=== PATIENT | female | born 2000 | race Caucasian/White ===

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

== ENCOUNTER → 2019-05-20 | Outpatient (CLI) | payer OTHER ==
[2019-05-20 20:54] LABS: Cardiolipin Ab IgG Interp NEGATIVE (NEGATIVE); Cardiolipin Ab IgM Interp NEGATIVE (NEGATIVE); Cardiolipin IgA Antibody <0.5 U/mL; Cardiolipin IgM Antibody 0.4 U/mL
[2019-05-21 11:36] LABS: Anti-Thrombin III Activity 107 % (79-109)
[2019-05-21 14:28] LABS: APTT 35 Sec(s) (<43); Dilute Russell Viper Venom 36 Sec(s) (<44)
[2019-05-21 16:10] LABS: Anti-Thrombin III Antigen 97 % (80 - 120)
== END | disposition home or self-care (01) ==
LOC: LABWHC1 10:52
PROVIDERS: ATTEND Obstetrics & Gynecology Maternal & Fetal Medicine
DX: O26.891 Other specified pregnancy related conditions, first trimester (principal); Z3A.00 Weeks of gestation of pregnancy not specified
CPT/HCPCS: 36415; 85300; 85301; 85613; 85730; 86147

== ENCOUNTER 2019-12-08 12:10 | Outpatient (CLI) | payer OTHER | END 2019-12-08 13:01 | disposition home or self-care (01) | LOC: FBPOP 12:10 | PROVIDERS: ATTEND Obstetrics & Gynecology | DX: O76 Abnormality in fetal heart rate and rhythm complicating labor and delivery (principal); Z3A.00 Weeks of gestation of pregnancy not specified | CPT/HCPCS: 59025 ==

== ENCOUNTER 2019-12-16 06:00 | Inpatient (IN) | payer OTHER ==
[2019-12-16] MEDS ORDERED: OXYTOCIN 10 UNIT/ML 1 ML VIAL IM PRN (06:14)
[2019-12-16] MEDS ORDERED: TERBUTALINE 1 MG/ML VIAL SQ PRN (06:14)
[2019-12-16] MEDS ORDERED: LIDOCAINE 0.5% (PF) 5 MG/ML (50 ML SDV) SQ PRN (06:14)
[2019-12-16] MEDS ORDERED: METHYLERGONOVINE 0.2 MG/ML 1 ML AMP IM PRN (06:14)
[2019-12-16] MEDS ORDERED: CARBOPROST TROMETHAMINE 250 MCG/ML 1 ML AMP IM PRN (06:14)
[2019-12-16] MEDS ORDERED: OXYTOCIN 30 UNITS/500 ML NS 30 UNIT in SALINE 1 500ML.BAG IV SCH (06:15)
[2019-12-16] MEDS: LACTATED RINGERS 1,000 ML IV SCH ×2 (06:29→12:54)
[2019-12-16 06:58] LABS: Basophils % (A) 0 %; Eosinophils # (A) 0.1 k/uL (0-0.7); Eosinophils % (A) 1 %; HCT 39.6 % (34.0-46.0); HGB 13.3 gm/dL (11.4-16.0); Lymphocytes # (A) 2.9 k/uL (1.0-4.8); Lymphocytes % (A) 31 %; MCH 30.3 pg (25.0-35.0); MCHC 33.5 g/dL (31.0-37.0); MCV 90.6 fL (80.0-100.0); Mean Platelet Volume 7.9; Monocytes # (A) 0.4 k/uL (0-1.0); Monocytes % (A) 5 %; Neutrophils # (A) 5.9 k/uL (1.3-7.7); Neutrophils % (A) 62 %; Platelet Count 315 k/uL (150-450); RBC 4.38 m/uL (3.80-5.40); RDW 14.2 % (11.5-15.5); WBC 9.6 k/uL (4.0-11.0)
[2019-12-16 07:08] LABS: INR 0.9 (<1.2); Prothrombin Time 9.6 sec (9.0-12.0)
[2019-12-16] MEDS ORDERED: BUTORPHANOL 1 MG/ML 1 ML VIAL IV PRN ×2 (09:40→09:48)
[2019-12-16] MEDS ORDERED: SODIUM CHLORIDE 0.9% 100 ML BAG ONE (11:42)
[2019-12-16] MEDS ORDERED: fentaNYL (PF) 50 MCG/ML 5 ML AMP ONE (11:42)
[2019-12-16] MEDS ORDERED: ROPIVACAINE 5MG/ML 20ML VIAL ONE (11:42)
[2019-12-16] MEDS ORDERED: ACETAMINOPHEN TAB 325 MG TAB PO PRN (12:47)
[2019-12-16] MEDS ORDERED: HYDROCORTISONE 2.5% RECTAL CREAM 30 GM TUBE RECTAL PRN (12:47)
[2019-12-16] MEDS ORDERED: SIMETHICONE 80 MG CHEWABLE PO PRN (12:47)
[2019-12-16] MEDS ORDERED: BENZOCAINE/MENTHOL SPRAY 1 GM/SPRAY AEROSOL TOPICAL PRN (12:47)
[2019-12-16] MEDS ORDERED: WITCH HAZEL 1 EACH MED..PAD TOPICAL PRN (12:47)
[2019-12-16] MEDS ORDERED: ZOLPIDEM 5 MG TAB PO PRN (12:47)
[2019-12-16] MEDS ORDERED: diphenhydrAMINE 25 MG CAP PO PRN (12:47)
[2019-12-16] MEDS ORDERED: diphenhydrAMINE 50 MG/ML 1 ML VIAL IVP PRN ×2 (12:47)
[2019-12-16] MEDS ORDERED: diphenhydrAMINE 50 MG CAP PO PRN (12:47)
[2019-12-16] MEDS ORDERED: LANOLIN CREAM 5 GM TUBE TOPICAL PRN (12:47)
[2019-12-16] MEDS ORDERED: IBUPROFEN 600 MG TAB PO PRN (12:47)
[2019-12-16] MEDS ORDERED: OXYTOCIN 20 UNITS/1000 ML NS 1,000 ML IV SCH (13:00)
[2019-12-16 21:29] VITALS: TEMP 98.4
--- NOTE | 2019-12-17 07:13 | P.HPOB ---
History of Present Illness H&P Date: 12/16/19 Chief Complaint: Induction of Labor 19-year-old presents at 39 weeks and 3 days for induction of labor. Her cervix is 2 cm dilated, 70% effaced, and -2 station. She is sarah irregularly. heart tones 130 with moderate variability and reactive. Review of Systems All systems: negative Constitutional: Denies chills, Denies fever Eyes: denies blurred vision, denies pain Ears, nose, mouth and throat: Denies headache, Denies sore throat Cardiovascular: Denies chest pain, Denies shortness of breath Respiratory: Denies cough Gastrointestinal: Denies abdominal pain, Denies diarrhea, Denies nausea, Denies vomiting Genitourinary: Denies dysuria, Denies hematuria Musculoskeletal: Denies myalgias Integumentary: Denies pruritus, Denies rash Neurological: Denies numbness, Denies weakness Psychiatric: Denies anxiety, Denies depression Endocrine: Denies fatigue, Denies weight change Past Medical History Past Medical History: Asthma Additional Past Medical History / Comment(s): Obstetric history: First was a vaginal delivery. This is patient's second , she started her care with dc early on. Blood type A+, abs negative, rubella immune, RPR nonreactive, hep is B-, toxoplasmosis negative, normal 1 hour glucose tolerance test, GBS negative. She is a history of a deep vein thrombosis 4 months after her last delivery when she was on control and smoking cigarettes. She's been on heparin injections throughout this . History of Any Multi-Drug Resistant Organisms: None Reported Past Surgical History: No Surgical Hx Reported Past Anesthesia/Blood Transfusion Reactions: No Reported Reaction Past Psychological History: Anxiety Smoking Status: Never smoker Past Alcohol Use History: None Reported Past Drug Use History: None Reported - Past Family History Mother History Unknown: Yes Family Medical History: Cancer Additional Family Medical History / Comment(s): Kidney Cancer Medications and Allergies Home Medications Medication Instructions Recorded Confirmed Type Albuterol Inhaler (Mhu) [Ventolin 1 puff INHALATION DIRECTED 01/20/18 12/16/19 History Hfa Inhaler (Mhu)] Pnv No.95/Ferrous Fum/Folic AC 1 tab PO DAILY 01/20/18 12/16/19 History [ Multivitamin Tablet] Heparin Sodium,Porcine [Heparin 5,000 unit SQ Q12HR 12/08/19 12/16/19 History Sodium] Allergies Allergy/AdvReac Type Severity Reaction Status Date / Time diphenhydramine HCl Allergy Rash/Hives Verified 12/16/19 06:12 [From Benadryl] Sulfa (Sulfonamide Allergy Swelling Verified 12/16/19 06:12 Antibiotics) Exam Osteopathic Statement: *. No significant issues noted on an osteopathic structural exam other than those noted in the History and Physical/Consult. Vital Signs Temp Pulse Resp BP Pulse Ox 12/17/19 00:00 98.4 F 89 16 107/76 12/16/19 20:00 98.4 F 91 16 109/66 99 12/16/19 15:15 98.2 F 66 16 102/64 12/16/19 14:30 16 12/16/19 14:00 67 16 97/60 12/16/19 13:45 61 16 105/69 12/16/19 13:30 79 16 102/63 12/16/19 13:15 88 16 105/61 12/16/19 13:00 98.2 F 92 16 124/65 Intake and Output 12/16/19 12/17/19 12/17/19 22:59 06:59 14:59 Output Total 100 Balance -100 Output: Estimated Blood Loss 100 Other: # Voids 1 1 Heart: Regular rate and rhythm Lungs: Clear to auscultation bilaterally Abdomen: Soft, nontender Extremities: Negative Homans sign Results Result Diagrams: 12/16/19 06:35 Assessment and Plan (1) Normal labor Current Visit: No Status: Resolved Code(s): O80 - ENCOUNTER FOR FULL-TERM UNCOMPLICATED DELIVERY; Z37.9 - OUTCOME OF DELIVERY, UNSPECIFIED SNOMED Code(s): 74876301 (2) History of DVT (deep vein thrombosis) Current Visit: Yes Status: Acute Code(s): Z86.718 - PERSONAL HISTORY OF OTHER VENOUS THROMBOSIS AND EMBOLISM SNOMED Code(s): 024511973 Plan: 1. Amniotomy and Pitocin for labor induction 2. Anticipate normal vaginal delivery
--- NOTE | 2019-12-17 07:15 | P.PROBDLV ---
Vaginal Delivery Note - . Vaginal Delivery Note: 19-year-old presents at 39 weeks and 3 days for induction of labor. Her cervix is 2 cm dilated, 70% effaced, and -2 station. She is sarah irregularly. heart tones 130 with moderate variability and reactive. Pitocin was started. Amniotomy was performed at 7:15 AM and clear fluid noted. She was uncomfortable early on and did have a dose of Stadol. When she was 4 centers dilated she got an epidural. She quickly progressed to complete at 1221. She pushed, delivered a viable female over intact perineum under epidural anesthesia at 12:30. Head delivered OA, anterior shoulder delivered with the guidance of a posterior shoulder and rest of body. Nose and mouth bulb suctioned, cord clamped and cut, placed on mother's abdomen. Apgars 9, 9, weight 6 lbs. 14 oz. Placenta delivered spontaneously, intact with three- vessel cord at 1232. Vagina, cervix, and perineum were inspected. No lacerations noted. Estimated blood loss 200 mL. Mother and baby in stable condition.
--- NOTE | 2019-12-17 07:17 | P.DS ---
Providers Date of admission: 12/16/19 06:05 Expected date of discharge: 12/17/19 Attending physician: Jina Marinelli Primary care physician: Stated None - Discharge Diagnosis(es) (1) History of DVT (deep vein thrombosis) Current Visit: Yes Status: Acute (2) Normal vaginal delivery Current Visit: No Status: Acute Hospital Course: Patient presented for induction of labor. She underwent a normal vaginal delivery. course was uncomplicated. She'll restart her heparin injections day 1 and will continue that for 6 weeks. Discharge instructions were reviewed. She is to follow-up with me in 6 weeks. Plan - Discharge Summary New Discharge Prescriptions: New Benzocaine/Menthol [place] [Dermoplast [place]] 1 gm TOPICAL TID PRN aerosol PRN Reason: Perineal Discomfort Sennosides-Docusate Sodium [Senokot-S] 2 each PO BID@0800,2000 tab Acetaminophen Tab [Tylenol] 650 mg PO Q4HR PRN tab PRN Reason: Mild Pain Or Fever >= 100.5 Continue Heparin Sodium,Porcine [Heparin Sodium] 5,000 unit SQ Q12HR No Action Albuterol Inhaler (Mhu) [Ventolin Hfa Inhaler (Mhu)] 1 puff INHALATION DIRECTED Pnv No.95/Ferrous Fum/Folic AC [ Multivitamin Tablet] 1 tab PO DAILY Discharge Medication List Albuterol Inhaler (Mhu) [Ventolin Hfa Inhaler (Mhu)] 1 puff INHALATION DIRECTED 01/20/18 [History] Pnv No.95/Ferrous Fum/Folic AC [ Multivitamin Tablet] 1 tab PO DAILY 01/20/18 [History] Heparin Sodium,Porcine [Heparin Sodium] 5,000 unit SQ Q12HR 12/08/19 [History] Acetaminophen Tab [Tylenol] 650 mg PO Q4HR PRN tab 12/17/19 [Rx] Benzocaine/Menthol [place] [Dermoplast [place]] 1 gm TOPICAL TID PRN aerosol 12/17/19 [Rx] Sennosides-Docusate Sodium [Senokot-S] 2 each PO BID@0800,2000 tab 12/17/19 [Rx] Follow up Appointment(s)/Referral(s): Jina Marinelli DO [Doctor of Osteopathic Medicine] - 6 Weeks Discharge Disposition: HOME SELF-CARE
[2019-12-17 07:42] LABS: Basophils % (A) 0 %; Eosinophils # (A) 0.1 k/uL (0-0.7); Eosinophils % (A) 1 %; HCT 32.4 % (34.0-46.0); HGB 10.8 gm/dL (11.4-16.0); Lymphocytes # (A) 2.8 k/uL (1.0-4.8); Lymphocytes % (A) 26 %; MCH 30.3 pg (25.0-35.0); MCHC 33.4 g/dL (31.0-37.0); MCV 90.8 fL (80.0-100.0); Mean Platelet Volume 8.2; Monocytes # (A) 0.4 k/uL (0-1.0); Monocytes % (A) 4 %; Neutrophils # (A) 7.4 k/uL (1.3-7.7); Neutrophils % (A) 68 %; Platelet Count 232 k/uL (150-450); RBC 3.57 m/uL (3.80-5.40); RDW 14.5 % (11.5-15.5)
[2019-12-17] MEDS: SENNOSIDES-DOCUSATE SODIUM 1 EACH TAB PO SCH ×2 (08:14→11:32)
[2019-12-17] MEDS ORDERED: PRENATAL VIT-IRON-FOLIC ACID 1 EACH CAP PO SCH (09:00)
[2019-12-17] MEDS ORDERED: HEPARIN SODIUM,PORCINE 5,000 UNIT/ML 1 ML VIAL SQ SCH (09:00)
[2019-12-17 11:30] VITALS: BP 110/70; PULSE 79; RESP 18
== END 2019-12-17 14:00 | disposition home or self-care (01) | DRG 807 ==
LOC: 4FBP 06:05
PROVIDERS: ADMIT Obstetrics & Gynecology; ATTEND Obstetrics & Gynecology
PROC: 00HU33Z Insertion of Infusion Device into Spinal Canal, Percutaneous Approach (ICD-10-PCS; principal; 2019-12-17)
PROC: 10E0XZZ Delivery of Products of Conception, External Approach (ICD-10-PCS; principal; 2019-12-17)
PROC: 3E0R3BZ Introduction of Anesthetic Agent into Spinal Canal, Percutaneous Approach (ICD-10-PCS; principal; 2019-12-17)
DX: O99.52 Diseases of the respiratory system complicating childbirth (principal); Z37.0 Single live birth; O99.344 Other mental disorders complicating childbirth; F41.9 Anxiety disorder, unspecified; J45.909 Unspecified asthma, uncomplicated; Z3A.39 39 weeks gestation of pregnancy; Z80.51 Family history of malignant neoplasm of kidney; Z86.718 Personal history of other venous thrombosis and embolism; Z87.891 Personal history of nicotine dependence; Z88.2 Allergy status to sulfonamides; Z88.8 Allergy status to other drugs, medicaments and biological substances
CPT/HCPCS: 85025; 85610; 85730; 86850; 86900; 86901

== ENCOUNTER 2020-09-20 00:59 | Emergency (ER) | payer OTHER ==
[2020-09-20 01:05] VITALS: TEMP 99.1
[2020-09-20] MEDS ORDERED: CEPHALEXIN 500MG STARTER PACK 4 CAP BTL PO STA (01:24)
--- NOTE | 2020-09-20 01:40 | ED ---
General Adult HPI - General Chief complaint: Extremity Injury, Upper Stated complaint: LT elbow pain Time Seen by Provider: 09/20/20 01:11 Source: patient, RN notes reviewed Mode of arrival: ambulatory Limitations: no limitations - History of Present Illness Initial comments: 20-year-old female presents to the emergency room for a chief complaint of left elbow pain. Patient reports that she fell a few days ago and scraped the inside of her elbow. Patient states that over the past couple days it has become red. Patient is concerned it could be infected. Patient denies any pain with movement of the elbow. States all the pain is on the skin on the outside. Denies any joint pain. Denies any weakness of the arm. Denies fevers or chills.Patient has no other complaints at this time including shortness of breath, chest pain, abdominal pain, nausea or vomiting, headache, or visual changes. - Related Data Home Medications Medication Instructions Recorded Confirmed Albuterol Inhaler (Mhu) [Ventolin 1 puff INHALATION DIRECTED 01/20/18 12/16/19 Hfa Inhaler (Mhu)] Pnv No.95/Ferrous Fum/Folic AC 1 tab PO DAILY 01/20/18 12/16/19 [ Multivitamin Tablet] Heparin Sodium,Porcine [Heparin 5,000 unit SQ Q12HR 12/08/19 12/16/19 Sodium] Previous Rx's Medication Instructions Recorded Acetaminophen Tab [Tylenol] 650 mg PO Q4HR PRN tab 12/17/19 Benzocaine/Menthol Warner 1 gm TOPICAL TID PRN aerosol 12/17/19 [Dermoplast Warner] Sennosides-Docusate Sodium 2 each PO BID@0800,2000 tab 12/17/19 [Senokot-S] Cephalexin [Keflex] 500 mg PO Q6HR 10 Days #40 cap 09/20/20 Allergies Allergy/AdvReac Type Severity Reaction Status Date / Time diphenhydramine HCl Allergy Rash/Hives Verified 09/20/20 01:05 [From Benadryl] Sulfa (Sulfonamide Allergy Swelling Verified 09/20/20 01:05 Antibiotics) Review of Systems ROS Statement: Those systems with pertinent positive or pertinent negative responses have been documented in the HPI. ROS Other: All systems not noted in ROS Statement are negative. Past Medical History Past Medical History: Asthma Additional Past Medical History / Comment(s): Obstetric history: First was a vaginal delivery. This is patient's second , she started her care with me early on. Blood type A+, abs negative, rubella immune, RPR nonreactive, hep is B-, toxoplasmosis negative, normal 1 hour glucose tolerance test, GBS negative. She is a history of a deep vein thrombosis 4 months after her last delivery when she was on control and smoking cigarettes. She's been on heparin injections throughout this . History of Any Multi-Drug Resistant Organisms: None Reported Past Surgical History: No Surgical Hx Reported Past Anesthesia/Blood Transfusion Reactions: No Reported Reaction Past Psychological History: Anxiety Smoking Status: Current every day smoker Past Alcohol Use History: None Reported Past Drug Use History: None Reported - Past Family History Mother History Unknown: Yes Family Medical History: Cancer Additional Family Medical History / Comment(s): Kidney Cancer General Exam Limitations: no limitations General appearance: alert, in no apparent distress Head exam: Present: atraumatic Eye exam: Present: normal appearance, PERRL, EOMI. Absent: scleral icterus, conjunctival injection ENT exam: Present: normal exam, mucous membranes moist Neck exam: Present: normal inspection, full ROM. Absent: tenderness Respiratory exam: Present: normal lung sounds bilaterally. Absent: respiratory distress, wheezes Cardiovascular Exam: Present: regular rate, normal rhythm, normal heart sounds GI/Abdominal exam: Present: soft, normal bowel sounds. Absent: distended, tenderness, guarding, rebound, rigid Extremities exam: Present: full ROM (Full range of motion of the left elbow. Patient has full extension and flexion.), normal capillary refill (cap refill less than 2 seconds, radial pulse 2+ in the left upper extremity.), other (Eryt jah surrounding dorsal aspect of the left elbow. This is demarcated with a marker. Patient does not have any swelling of the bursa) Neurological exam: Present: alert Course Vital Signs 09/20/20 01:02 Temperature 99.1 F Pulse Rate 90 Respiratory 18 Rate Blood Pressure 119/85 O2 Sat by Pulse 100 Oximetry Medical Decision Making - Medical Decision Making X-ray of the left elbow shows subcutaneous edema seen over the extensor surface of the left elbow which could represent contusion cellulitis or bursitis. No subcutaneous gas or foreign body seen. No fracture or dislocation. At this time there is no evidence for joint infection. Patient has full range of motion and is afebrile. She does have evidence for cellulitis and will be treated with Keflex. She will follow up with her doctor. She will return here for any worsening symptoms. I did discuss strict return parameters. Disposition Clinical Impression: Cellulitis Disposition: HOME SELF-CARE Condition: Good Instructions (If sedation given, give patient instructions): Cellulitis (ED) Additional Instructions: Please take antibiotic as directed. You may take 24 hours to really kick in. It may spread a small amount in the next 24 hours and then should certainly improve. If it is spreading rapidly are not improving after 24 hours return to the emergency room. If it is streaking return to the emergency room. If you develop fevers or difficulty straightening or bending the elbow you need to return as well. Otherwise follow-up with her doctor in one to 2 days. Prescriptions: Cephalexin [Keflex] 500 mg PO Q6HR 10 Days #40 cap Is patient prescribed a controlled substance at d/c from ED?: No Referrals: Adarsh Lopez MD [Primary Care Provider] - 1-2 days Time of Disposition: 02:00
--- NOTE | 2020-09-20 01:52 | XR ---
EXAM: XR Left Elbow Complete, 3 or More Views CLINICAL HISTORY: ITS.REASON XR Reason: pain, fall, cellulitis TECHNIQUE: Frontal, lateral and oblique views of the left elbow. COMPARISON: No relevant prior studies available. FINDINGS: Bones/joints: Unremarkable. No acute fracture. No dislocation. Soft tissues: Subcutaneous edema seen of the extensor surface of the left elbow. IMPRESSION: Subcutaneous edema seen of the extensor surface of the left elbow which could represent contusion, cellulitis, and/or bursitis. No subcutaneous gas or foreign body is seen. No fracture or dislocation..
[2020-09-20 02:13] VITALS: BP 106/79; PULSE 85; RESP 17
[2020-09-20] MEDS ORDERED: IBUPROFEN 600 MG STARTER PACK 4 TAB BTL PO STA (02:16)
[2020-09-20] MEDS ORDERED: ACETAMINOPHEN TAB 500 MG TAB PO STA (02:16)
== END 2020-09-20 02:24 | disposition home or self-care (01) ==
LOC: EC 00:59
DX: L03.114 Cellulitis of left upper limb (principal); J45.909 Unspecified asthma, uncomplicated; F17.210 Nicotine dependence, cigarettes, uncomplicated; Z79.899 Other long term (current) drug therapy; Z79.01 Long term (current) use of anticoagulants; Z88.8 Allergy status to other drugs, medicaments and biological substances; Z88.2 Allergy status to sulfonamides; Z86.718 Personal history of other venous thrombosis and embolism
CPT/HCPCS: 99283

== ENCOUNTER 2021-12-28 01:18 | Inpatient (IN) | payer OTHER ==
[2021-12-28] MEDS ORDERED: AMPICILLIN 2,000 MG in SODIUM CHLORIDE 0.9% 100 ML IVPB STA (01:30)
[2021-12-28] MEDS ORDERED: LANOLIN CREAM 5 GM TUBE TOPICAL PRN (06:08)
[2021-12-28] MEDS ORDERED: IBUPROFEN 600 MG TAB PO PRN (06:08)
[2021-12-28] MEDS ORDERED: SIMETHICONE 80 MG CHEWABLE PO PRN (06:08)
[2021-12-28] MEDS ORDERED: HYDROCORTISONE 2.5% RECTAL CREAM 30 GM TUBE RECTAL PRN (06:08)
[2021-12-28] MEDS ORDERED: BENZOCAINE/MENTHOL SPRAY 1 GM/SPRAY AEROSOL TOPICAL PRN (06:08)
[2021-12-28] MEDS ORDERED: ZOLPIDEM 5 MG TAB PO PRN (06:08)
[2021-12-28 07:26] LABS: Basophils % (A) 0 %; Eosinophils # (A) 0.1 k/uL (0-0.7); Eosinophils % (A) 1 %; HCT 33.6 % (34.0-46.0); HGB 10.8 gm/dL (11.4-16.0); Hypochromasia Slight; Lymphocytes # (A) 2.2 k/uL (1.0-4.8); Lymphocytes % (A) 18 %; MCH 26.5 pg (25.0-35.0); MCHC 32.2 g/dL (31.0-37.0); MCV 82.4 fL (80.0-100.0); Mean Platelet Volume 8.7; Monocytes # (A) 0.4 k/uL (0-1.0); Monocytes % (A) 4 %; Neutrophils # (A) 9.4 k/uL (1.3-7.7); Neutrophils % (A) 76 %; Platelet Count 342 k/uL (150-450); RBC 4.08 m/uL (3.80-5.40); RDW 14.2 % (11.5-15.5); WBC 12.3 k/uL (3.8-10.6)
[2021-12-28 09:02] LABS: Amphetamine Screen,Urine Detected (NotDetected); Barbiturate Screen,Urine Not Detected (NotDetected); Benzodiazepines Screen,Urine Not Detected (NotDetected); Cocaine Screen,Urine Not Detected (NotDetected); Methadone Screen, Urine Not Detected (NotDetected); Opiate Screen,Urine Not Detected (NotDetected); Oxycodone Screen, Urine Not Detected (NotDetected); Phencyclidine Screen,Urine Not Detected (NotDetected); Tricyclic Antidepressant,Urine Not Detected (NotDetected); Urn Cannabinoid Scrn Detected (NotDetected)
[2021-12-28] MEDS: ACETAMINOPHEN TAB 325 MG TAB PO PRN (09:02)
[2021-12-28] MEDS: SENNOSIDES-DOCUSATE SODIUM 1 EACH TAB PO SCH ×2 (09:03→18:50)
--- NOTE | 2021-12-28 09:26 | P.HPOB ---
History of Present Illness H&P Date: 12/28/21 Chief Complaint: Contractions This is a 21-year-old female 3 para 2 at 38-0/7 weeks with an estimated date of confinement of 01/11/2022 who presented in active labor with complaints of contractions since approximately 6 PM the night before. She denied any rupture of membranes. On arrival she was found to be 8 cm. She had care with Dr. Marinelli during this . It appears she didn't start her care until 30 weeks. In reviewing the record, it does appear that she had a drug screen positive for THC and amphetamines. She does have a history of a clot in her liver after delivery of her first child. She states that time she was smoking and on oral contraceptives. She was placed on heparin during her second . She states she tried to take heparin this but was unable to and therefore was placed on 2 baby aspirin a day. She was seen by maternal medicine for this condition. labs: Pap smear-within normal limits GC/Chlamydia/Trichomonas-negative Drug screen on 11/15/2021-positive for amphetamines and cannabinoid Group B streptococcus-positive Obstetrical history: . History of 2 vaginal deliveries at term. Review of Systems Constitutional: Denies chills, Denies fever Eyes: denies blurred vision, denies pain Ears, nose, mouth and throat: Denies headache, Denies sore throat Cardiovascular: Denies chest pain, Denies shortness of breath Respiratory: Denies cough Gastrointestinal: Reports abdominal pain Genitourinary: Reports pelvic pain, Reports Musculoskeletal: Reports low back pain Integumentary: Denies pruritus, Denies rash Neurological: Denies numbness, Denies weakness Psychiatric: Reports difficulty concentrating Past Medical History Past Medical History: Asthma, Deep Vein Thrombosis (DVT) (History of deep vein thrombosis in her liver after the delivery of her first child) History of Any Multi-Drug Resistant Organisms: None Reported Past Surgical History: No Surgical Hx Reported Past Anesthesia/Blood Transfusion Reactions: No Reported Reaction Past Psychological History: ADD/ADHD, Anxiety, Depression Smoking Status: Former smoker Past Alcohol Use History: None Reported Past Drug Use History: None Reported Additional Drug Use History / Comment(s): History of THC use with positive drug screen at 30 weeks. Also history of positive drug screen for amphetamines at 30 weeks. - Past Family History Mother History Unknown: Yes Family Medical History: Cancer Additional Family Medical History / Comment(s): Kidney Cancer Medications and Allergies Home Medications Medication Instructions Recorded Confirmed Type Albuterol Inhaler (Mhu) [Ventolin 1 puff INHALATION DIRECTED 01/20/18 12/28/21 History Hfa Inhaler (Mhu)] Pnv No.95/Ferrous Fum/Folic AC 1 tab PO DAILY 01/20/18 12/28/21 History [ Multivitamin Tablet] Cephalexin [Keflex] 500 mg PO Q6HR 10 Days #40 cap 09/20/20 12/28/21 Rx Aspirin [Children's Aspirin] 1 tab PO BID 12/28/21 12/28/21 History Allergies Allergy/AdvReac Type Severity Reaction Status Date / Time diphenhydramine HCl Allergy Rash/Hives Verified 09/20/20 01:05 [From Benadryl] Sulfa (Sulfonamide Allergy Swelling Verified 09/20/20 01:05 Antibiotics) Exam Osteopathic Statement: *. No significant issues noted on an osteopathic structural exam other than those noted in the History and Physical/Consult. Vital Signs Temp Pulse Resp BP 12/28/21 08:00 97.6 F 84 18 110/71 Intake and Output 12/27/21 12/28/21 12/28/21 22:59 06:59 14:59 Other: # Voids 1 Weight 64.41 kg Gen.: Well-developed well-nourished female in moderate to severe distress due to active labor. HEENT: Within normal limits Heart: Regular rate and rhythm Lungs: Clear to auscultation bilaterally Abdomen: Cervix: 8 cm/bulging bag/-2 station. Artificial rupture membranes is carried out with thick meconium noted heart tones: 140s, category 1 Contractions: Every 2-3 minutes Extremities: Negative Homans Results Result Diagrams: 12/28/21 01:12 Abnormal Lab Results - Last 24 Hours (Table) 12/28/21 12/28/21 Range/Units 01:12 05:56 WBC 12.3 H (3.8-10.6) k/uL Hgb 10.8 L (11.4-16.0) gm/dL Hct 33.6 L (34.0-46.0) % Neutrophils # 9.4 H (1.3-7.7) k/uL Ur Amphetamines Screen Detected H (NotDetected) U Methamphetamines Scrn Detected H (NotDetected) U Marijuana (THC) Screen Detected H (NotDetected) Assessment and Plan (1) 38 weeks gestation of Current Visit: Yes Status: Acute Code(s): Z3A.38 - 38 WEEKS GESTATION OF SNOMED Code(s): 96464243 (2) Positive urine drug screen Current Visit: Yes Status: Acute Code(s): R82.5 - ELEVATED URINE LEVELS OF DRUG/MEDS/BIOL SUBST SNOMED Code(s): 423365190 (3) History of DVT (deep vein thrombosis) Current Visit: No Status: Acute Code(s): Z86.718 - PERSONAL HISTORY OF OTHER VENOUS THROMBOSIS AND EMBOLISM SNOMED Code(s): 999260873 (4) Group B Streptococcus carrier, +RV culture, currently Current Visit: Yes Status: Acute Code(s): O99.820 - STREPTOCOCCUS B CARRIER STATE COMPLICATING SNOMED Code(s): 5631700624987 Plan: Admission for active labor. Expectant management. Will consult social science analyst due to positive drug screen during . Antibiotic prophylaxis for group B streptococcus.
--- NOTE | 2021-12-28 09:28 | P.PROBDLV ---
Vaginal Delivery Note - . Vaginal Delivery Note: The patient arrived in active labor at 8 cm. She was very uncontrolled and thrashing about in the bed. When I did check her, I performed artificial rupture membranes and thick meconium was noted. Anesthesia was notified. She fairly quickly reached complete dilation. She was instructed to push. Once she was able to control herself enough to push, the 's head came to the perineum fairly quickly and then delivered across the perineum followed by the anterior shoulder and the remainder the infant. Nose and mouth were bulb suctioned. Cord was clamped and cut and was taken to warmer for evaluation by nursing staff and HIGHWAY PA[employer]. A viable female infant is noted with scores of 8 at 1 minute and 9 at 5 minutes and infant weight of 6 lbs. 7 oz. Placenta delivered shortly thereafter, intact, with a three-vessel cord. Inspection of the perineum revealed no perineal lacerations. Estimated blood loss is approximately 100 mL's. Mother is in stable condition and infant is taken to level I nursery for further evaluation.
[2021-12-28 19:06] LABS: Hepatitis B Surface Antigen Nonreactive (Nonreactive)
--- NOTE | 2021-12-29 06:35 | P.PN ---
Progress Note - Text Progress Note Date: 12/29/21 day #1. Patient is resting without complaints and wishes to go home. Patient's baby is going to be in the nursery for at least 5 days for JACQUELINE scoring. Vital signs are stable she's afebrile. Uterus is firm and nontender she's having normal lochia. Patient did have positive toxicology screen for marijuana and methamphetamines. Plan today is to continue routine care and discharge home later this morning.
--- NOTE | 2021-12-29 06:39 | P.DS ---
Providers Date of admission: 12/28/21 01:18 Expected date of discharge: 12/29/21 Attending physician: Jina Mairnelli Primary care physician: Stated None Hospital Course: Please see dictated admission history and physical and delivery note per Dr. Taylor on this patient's admission. In brief summary this is a 21-year-old 3 para 2 female 38 weeks gestation admitted to labor and delivery in active labor. Patient quickly goes on have a vaginal delivery viable female . Please see dictated delivery note. Of note patient positive toxicology screen for methamphetamines and marijuana on admission. patient does well was felt to be stable for discharge home follow up with Dr. Marinelli and 6 weeks. Patient Condition at Discharge: Good Plan - Discharge Summary New Discharge Prescriptions: New Ibuprofen [Motrin] 600 mg PO Q6HR PRN #30 tab PRN Reason: Mild Pain (Scale 1 To 3) No Action Albuterol Inhaler (Mhu) [Ventolin Hfa Inhaler (Mhu)] 1 puff INHALATION DIRECTED Pnv No.95/Ferrous Fum/Folic AC [ Multivitamin Tablet] 1 tab PO DAILY Cephalexin [Keflex] 500 mg PO Q6HR 10 Days #40 cap Aspirin [Children's Aspirin] 1 tab PO BID Discharge Medication List Albuterol Inhaler (Mhu) [Ventolin Hfa Inhaler (Mhu)] 1 puff INHALATION DIRECTED 01/20/18 [History] Pnv No.95/Ferrous Fum/Folic AC [ Multivitamin Tablet] 1 tab PO DAILY 01/20/18 [History] Cephalexin [Keflex] 500 mg PO Q6HR 10 Days #40 cap 09/20/20 [Rx] Aspirin [Children's Aspirin] 1 tab PO BID 12/28/21 [History] Ibuprofen [Motrin] 600 mg PO Q6HR PRN #30 tab 12/29/21 [Rx] Follow up Appointment(s)/Referral(s): Jina Marinelli DO [Doctor of Osteopathic Medicine] - 02/08/22 3:45 pm Patient Instructions/Handouts: Vaginal Delivery (DC), Methamphetamine Abuse (DC) Activity/Diet/Wound Care/Special Instructions: No intercourse or anything per vagina for 6 weeks. Please call if any fever, chills, excessive vaginal bleeding, and/or abdominal pain. Discharge Disposition: HOME SELF-CARE
[2021-12-29 08:04] VITALS: BP 101/77; PULSE 86; RESP 18; TEMP 98.4
[2021-12-29 08:04] LABS: Basophils % (A) 0 %; Eosinophils # (A) 0.1 k/uL (0-0.7); Eosinophils % (A) 1 %; HGB 10.9 gm/dL (11.4-16.0); Hypochromasia Slight; Lymphocytes # (A) 2.8 k/uL (1.0-4.8); Lymphocytes % (A) 27 %; MCH 27.1 pg (25.0-35.0); MCV 84.8 fL (80.0-100.0); Mean Platelet Volume 8.3; Monocytes # (A) 0.4 k/uL (0-1.0); Monocytes % (A) 4 %; Neutrophils # (A) 6.7 k/uL (1.3-7.7); Neutrophils % (A) 65 %; Platelet Count 301 k/uL (150-450); RBC 4.01 m/uL (3.80-5.40); RDW 14.5 % (11.5-15.5); WBC 10.3 k/uL (3.8-10.6)
[2021-12-29] MEDS: SENNOSIDES-DOCUSATE SODIUM 1 EACH TAB PO SCH (08:06)
[2021-12-29] MEDS: ACETAMINOPHEN TAB 325 MG TAB PO PRN (08:46)
== END 2021-12-29 12:54 | disposition home or self-care (01) | DRG 807 ==
LOC: 4FBP 01:18
PROVIDERS: ADMIT Obstetrics & Gynecology; ATTEND Obstetrics & Gynecology
PROC: 10907ZC Drainage of Amniotic Fluid, Therapeutic from Products of Conception, Via Natural or Artificial Opening (ICD-10-PCS; principal; 2021-12-28)
PROC: 10E0XZZ Delivery of Products of Conception, External Approach (ICD-10-PCS; principal; 2021-12-28)
DX: O99.824 Streptococcus B carrier state complicating childbirth (principal); Z37.0 Single live birth; Z3A.38 38 weeks gestation of pregnancy; O77.0 Labor and delivery complicated by meconium in amniotic fluid; O99.52 Diseases of the respiratory system complicating childbirth; R78.89 Finding of other specified substances, not normally found in blood; J45.909 Unspecified asthma, uncomplicated; O99.344 Other mental disorders complicating childbirth; F32.A Depression, unspecified; F41.9 Anxiety disorder, unspecified; F90.9 Attention-deficit hyperactivity disorder, unspecified type; Z87.891 Personal history of nicotine dependence; Z86.718 Personal history of other venous thrombosis and embolism; Z79.82 Long term (current) use of aspirin; Z80.51 Family history of malignant neoplasm of kidney
CPT/HCPCS: 80306; 85025; 86762; 86780; 86850; 86900; 86901; 87340; 88307

== ENCOUNTER 2022-05-09 14:45 | Observation (INO) | payer OTHER ==
[2022-05-09] MEDS ORDERED: SODIUM CHLORIDE 0.9% 1,000 ML IV STA (15:38)
[2022-05-09] MEDS ORDERED: MORPHINE SULFATE 4 MG/ML SYRINGE IV STA (15:38)
[2022-05-09 15:49] LABS: Basophils # (A) 0.1 k/uL (0-0.2); Basophils % (A) 0 %; Eosinophils % (A) 0 %; HCT 44.1 % (34.0-46.0); HGB 14.2 gm/dL (11.4-16.0); Lymphocytes # (A) 1.6 k/uL (1.0-4.8); Lymphocytes % (A) 13 %; MCH 29.4 pg (25.0-35.0); MCHC 32.1 g/dL (31.0-37.0); MCV 91.6 fL (80.0-100.0); Mean Platelet Volume 7.9; Monocytes # (A) 0.3 k/uL (0-1.0); Monocytes % (A) 2 %; Neutrophils # (A) 10.9 k/uL (1.3-7.7); Neutrophils % (A) 84 %; Platelet Count 452 k/uL (150-450); RBC 4.82 m/uL (3.80-5.40); RDW 13.5 % (11.5-15.5); WBC 12.9 k/uL (3.8-10.6)
[2022-05-09 16:00] LABS: ALT 21 U/L (4-34); AST 35 U/L (14-36); African American GFR (CKD) >90 (>60 ml/min/1.73 sqM); Albumin 4.2 g/dL (3.5-5.0); Alkaline Phosphatase 91 U/L (38-126); Anion Gap 13 mmol/L; Blood Urea Nitrogen 6 mg/dL (7-17); Calcium 9.4 mg/dL (8.4-10.2); Carbon Dioxide 21 mmol/L (22-30); Chloride 105 mmol/L (98-107); Glucose 99 mg/dL (74-99); Lipase 57 U/L (23-300); Non-African American GFR(CKD) >90 (>60 ml/min/1.73 sqM); Potassium 4.3 mmol/L (3.5-5.1); Sodium 139 mmol/L (137-145); Total Bilirubin 0.5 mg/dL (0.2-1.3); Total Protein 6.8 g/dL (6.3-8.2)
--- NOTE | 2022-05-09 16:02 | ED ---
Abdominal Pain HPI - General Chief Complaint: Abdominal Pain Stated Complaint: Abd pain Time Seen by Provider: 05/09/22 15:25 Source: EMS Mode of arrival: EMS Limitations: no limitations - History of Present Illness Initial Comments: 21-year-old female with past medical history of portal venous thrombosis not currently on any anticoagulation who presents to the emergency department with right upper quadrant abdominal pain. She was seen at [facility] yesterday for similar complaints. She was diagnosed with gallstones. She had laboratory studies, CT of the abdomen and an ultrasound performed. She was given morphine for pain and discharge instructions including follow-up with Dr. Tobias who is a surgeon for [place]. She was discharged home on Naprosyn and Zofran. Her pain was controlled when she went home. This morning she attempted to eat some crackers. She began developing worsening right upper quadrant pain, nausea and began vomiting. She has been unable to hold down any food or drink in the past 24 hours. She denies fevers. No concern for . She denies diarrhea. Admits constipation. Admits to dysuria. No other alleviating, precipitating or modifying factors - Related Data Home Medications Medication Instructions Recorded Confirmed Pnv No.95/Ferrous Fum/Folic AC 1 tab PO DAILY 01/20/18 05/09/22 [ Multivitamin Tablet] Naproxen [Naprosyn] 500 mg PO BID PRN 05/09/22 05/09/22 Ondansetron Odt [Zofran Odt] 4 mg PO BID PRN 05/09/22 05/09/22 busPIRone HCL [Buspirone HCl] 10 mg PO DAILY 05/09/22 05/09/22 Previous Rx's Medication Instructions Recorded traMADol HCl [Ultram] 50 mg PO Q6H PRN #6 tab 05/11/22 Allergies Allergy/AdvReac Type Severity Reaction Status Date / Time diphenhydramine HCl Allergy Rash/Hives Verified 05/10/22 15:57 [From Benadryl] Sulfa (Sulfonamide Allergy Swelling Verified 05/10/22 15:57 Antibiotics) Review of Systems ROS Statement: Those systems with pertinent positive or pertinent negative responses have been documented in the HPI. ROS Other: All systems not noted in ROS Statement are negative. Past Medical History Past Medical History: Asthma, Deep Vein Thrombosis (DVT) Additional Past Medical History / Comment(s): Obstetric history: First was a vaginal delivery. This is patient's second , she started her care with me early on. Blood type A+, abs negative, rubella immune, RPR nonreactive, hep is B-, toxoplasmosis negative, normal 1 hour glucose tolerance test, GBS postive. She is a history of a deep vein thrombosis 4 months after her last delivery when she was on control and smoking cigarettes. pt. states she has been taking asprin this History of Any Multi-Drug Resistant Organisms: None Reported Past Surgical History: No Surgical Hx Reported Past Anesthesia/Blood Transfusion Reactions: No Reported Reaction Past Psychological History: ADD/ADHD, Anxiety, Depression Smoking Status: Former smoker Past Alcohol Use History: None Reported Past Drug Use History: Marijuana - Past Family History Mother History Unknown: Yes Family Medical History: Cancer Additional Family Medical History / Comment(s): Kidney Cancer General Exam Limitations: no limitations General appearance: alert, in no apparent distress Head exam: Present: atraumatic, normocephalic, normal inspection Eye exam: Present: normal appearance, PERRL, EOMI. Absent: scleral icterus, conjunctival injection, periorbital swelling ENT exam: Present: normal exam, mucous membranes moist Neck exam: Present: normal inspection. Absent: tenderness, meningismus, lymphadenopathy Respiratory exam: Present: normal lung sounds bilaterally. Absent: respiratory distress, wheezes, rales, rhonchi, stridor Cardiovascular Exam: Present: regular rate, normal rhythm, normal heart sounds. Absent: systolic murmur, diastolic murmur, rubs, gallop, clicks GI/Abdominal exam: Present: soft, tenderness (RUQ), normal bowel sounds. Absent: distended, guarding, rebound, rigid, pulsatile mass Extremities exam: Present: normal inspection, full ROM, normal capillary refill. Absent: tenderness, pedal edema, joint swelling, calf tenderness Back exam: Present: normal inspection Neurological exam: Present: alert, oriented X3, CN II-XII intact Psychiatric exam: Present: normal affect, normal mood Skin exam: Present: warm, dry, intact, normal color. Absent: rash Course Vital Signs 05/09/22 05/09/22 05/09/22 14:49 18:19 19:00 Temperature 98.3 F 98.4 F Pulse Rate 55 L 80 Pulse Rate [ 79 Pulse Oximetery ] Respiratory 18 18 17 Rate Blood Pressure 123/83 111/82 Blood Pressure 112/73 [Right Arm] O2 Sat by Pulse 98 97 96 Oximetry Medical Decision Making - Medical Decision Making upon arrival patient is placed into room 21. A thorough history and physical exam was performed. Patient received 4 g of Zofran from EMS. She also received 15 mg of Toradol. I obtained the records from [facility]. Ultrasound demonstrates multiple stones with shadowing. Contracted gallbladder with wall thickening. Hyperechoic lesion within the left hepatic lobe measuring 1.7. No pericholecystic fluid or inflammation. CT of the chest was performed which demonstrates no evidence of PE. Portal vein is patent. I repeated laboratory studies. Patient was given 4 mg of morphine. Spoke with Dr. Rodriguez in regards to the patient's uncontrolled pain and nausea. Patient will be admitted with IV antibiotics, pain control and antiemetics. Patient was agreeable to the treatment plan and was admitted in stable condition - Lab Data Result diagrams: 05/10/22 06:51 05/10/22 09:44 Lab Results 05/09/22 05/09/22 05/09/22 Range/Units 15:40 15:40 15:55 WBC 12.9 H (3.8-10.6) k/uL RBC 4.82 (3.80-5.40) m/uL Hgb 14.2 (11.4-16.0) gm/dL Hct 44.1 (34.0-46.0) % MCV 91.6 (80.0-100.0) fL MCH 29.4 (25.0-35.0) pg MCHC 32.1 (31.0-37.0) g/dL RDW 13.5 (11.5-15.5) % Plt Count 452 H (150-450) k/uL MPV 7.9 Neutrophils % 84 % Lymphocytes % 13 % Monocytes % 2 % Eosinophils % 0 % Basophils % 0 % Neutrophils # 10.9 H (1.3-7.7) k/uL Lymphocytes # 1.6 (1.0-4.8) k/uL Monocytes # 0.3 (0-1.0) k/uL Eosinophils # 0.0 (0-0.7) k/uL Basophils # 0.1 (0-0.2) k/uL Sodium 139 (137-145) mmol/L Potassium 4.3 (3.5-5.1) mmol/L Chloride 105 (98-107) mmol/L Carbon Dioxide 21 L (22-30) mmol/L Anion Gap 13 mmol/L BUN 6 L (7-17) mg/dL Creatinine 0.68 (0.52-1.04) mg/dL Est GFR (CKD-EPI)AfAm >90 (>60 ml/min/1.73 sqM) Est GFR (CKD-EPI)NonAf >90 (>60 ml/min/1.73 sqM) Glucose 99 (74-99) mg/dL Calcium 9.4 (8.4-10.2) mg/dL Total Bilirubin 0.5 (0.2-1.3) mg/dL AST 35 (14-36) U/L ALT 21 (4-34) U/L Alkaline Phosphatase 91 (38-126) U/L Total Protein 6.8 (6.3-8.2) g/dL Albumin 4.2 (3.5-5.0) g/dL Lipase 57 (23-300) U/L Urine Color Yellow Urine Appearance Cloudy H (Clear) Urine pH 7.5 (5.0-8.0) Ur Specific [place] 1.028 (1.001-1.035) Urine Protein 1+ H (Negative) Urine Glucose (UA) Negative (Negative) Urine Ketones 4+ H (Negative) Urine Blood Negative (Negative) Urine Nitrite Negative (Negative) Urine Bilirubin Negative (Negative) Urine Urobilinogen 2.0 (<2.0) mg/dL Ur Leukocyte Esterase Large H (Negative) Urine RBC 2 (0-5) /hpf Urine WBC 181 H (0-5) /hpf Ur Squamous Epith Cells 15 H (0-4) /hpf Urine Bacteria Rare H (None) /hpf Hyaline Casts 2 (0-2) /lpf Urine Mucus Many H (None) /hpf Urine HCG, Qual (Not Detectd) 05/09/22 Range/Units 16:08 WBC (3.8-10.6) k/uL RBC (3.80-5.40) m/uL Hgb (11.4-16.0) gm/dL Hct (34.0-46.0) % MCV (80.0-100.0) fL MCH (25.0-35.0) pg MCHC (31.0-37.0) g/dL RDW (11.5-15.5) % Plt Count (150-450) k/uL MPV Neutrophils % % Lymphocytes % % Monocytes % % Eosinophils % % Basophils % % Neutrophils # (1.3-7.7) k/uL Lymphocytes # (1.0-4.8) k/uL Monocytes # (0-1.0) k/uL Eosinophils # (0-0.7) k/uL Basophils # (0-0.2) k/uL Sodium (137-145) mmol/L Potassium (3.5-5.1) mmol/L Chloride (98-107) mmol/L Carbon Dioxide (22-30) mmol/L Anion Gap mmol/L BUN (7-17) mg/dL Creatinine (0.52-1.04) mg/dL Est GFR (CKD-EPI)AfAm (>60 ml/min/1.73 sqM) Est GFR (CKD-EPI)NonAf (>60 ml/min/1.73 sqM) Glucose (74-99) mg/dL Calcium (8.4-10.2) mg/dL Total Bilirubin (0.2-1.3) mg/dL AST (14-36) U/L ALT (4-34) U/L Alkaline Phosphatase (38-126) U/L Total Protein (6.3-8.2) g/dL Albumin (3.5-5.0) g/dL Lipase (23-300) U/L Urine Color Urine Appearance (Clear) Urine pH (5.0-8.0) Ur Specific [place] (1.001-1.035) Urine Protein (Negative) Urine Glucose (UA) (Negative) Urine Ketones (Negative) Urine Blood (Negative) Urine Nitrite (Negative) Urine Bilirubin (Negative) Urine Urobilinogen (<2.0) mg/dL Ur Leukocyte Esterase (Negative) Urine RBC (0-5) /hpf Urine WBC (0-5) /hpf Ur Squamous Epith Cells (0-4) /hpf Urine Bacteria (None) /hpf Hyaline Casts (0-2) /lpf Urine Mucus (None) /hpf Urine HCG, Qual Not Detected (Not Detectd) - EKG Data EKG Comments: EKG demonstrates sinus bradycardia with a rate of 51. VT interval 128. QRS 82. QTC 432. No acute ST segment elevations or depressions Disposition Clinical Impression: Cholelithiasis, RUQ abdominal pain, Nausea and vomiting Disposition: ADMITTED IP TO THIS HOSP Condition: Stable Is patient prescribed a controlled substance at d/c from ED?: No Time of Disposition: 17:49 Decision to Admit Reason: Admit from EC Decision Date: 05/09/22 Decision Time: 17:49
[2022-05-09 16:07] LABS: Appearance,Urine Cloudy (Clear); Bacteria,Urine Rare /hpf; Bilirubin,Urine Negative (Negative); Blood,Urine Negative (Negative); Color,Urine Yellow; Glucose,Urine (UA) Negative (Negative); Hyaline Casts,Urine 2 /lpf (0-2); Ketones,Urine 4+ (Negative); Leukocyte Esterase,Urine Large (Negative); Mucus,Urine Many /hpf; Nitrite,Urine Negative (Negative); PH, Urine 7.5 (5.0-8.0); Protein,Urine 1+ (Negative); RBC,Urine 2 /hpf (0-5); Specific Gravity,Urine 1.028 (1.001-1.035); Squamous Epithelial Cell,Urine 15 /hpf (0-4); WBC,Urine 181 /hpf (0-5)
[2022-05-09] MEDS ORDERED: SODIUM CHLORIDE 0.9% 1,000 ML IV ONE (17:49)
[2022-05-09] MEDS ORDERED: NALOXONE 0.4 MG/ML 1 ML VIAL IV PRN (17:51)
[2022-05-09] MEDS: PANTOPRAZOLE 40 MG/10 ML VIAL IV SCH (18:28)
[2022-05-09] MEDS: PIPERACILLIN-TAZOBACTAM 3.375 GM in SODIUM CHLORIDE 0.9% 100 ML IVPB SCH (18:34)
[2022-05-09] MEDS: MORPHINE SULFATE 4 MG/ML SYRINGE IV PRN (20:28)
[2022-05-09] MEDS: SODIUM CHLORIDE 0.9% 1,000 ML IV SCH (21:35)
[2022-05-10] MEDS: MORPHINE SULFATE 4 MG/ML SYRINGE IV PRN ×5 (01:59→21:32)
[2022-05-10] MEDS: PIPERACILLIN-TAZOBACTAM 3.375 GM in SODIUM CHLORIDE 0.9% 100 ML IVPB SCH ×3 (02:00→19:27)
[2022-05-10] MEDS: SODIUM CHLORIDE 0.9% 1,000 ML IV SCH ×3 (02:04→19:26)
[2022-05-10] MEDS: ONDANSETRON 4 MG/2 ML VIAL IVP PRN ×3 (05:57→23:39)
[2022-05-10] MEDS: PANTOPRAZOLE 40 MG/10 ML VIAL IV SCH (09:49)
[2022-05-10 10:34] LABS: ALT 22 U/L (4-34); AST 37 U/L (14-36); African American GFR (CKD) >90 (>60 ml/min/1.73 sqM); Albumin 3.7 g/dL (3.5-5.0); Albumin/Globulin Ratio 1.7; Alkaline Phosphatase 80 U/L (38-126); Anion Gap 12 mmol/L; Blood Urea Nitrogen 7 mg/dL (7-17); Calcium 8.7 mg/dL (8.4-10.2); Carbon Dioxide 22 mmol/L (22-30); Chloride 106 mmol/L (98-107); Globulin 2.2 g/dL; Glucose 85 mg/dL (74-99); Non-African American GFR(CKD) >90 (>60 ml/min/1.73 sqM); Potassium 3.8 mmol/L (3.5-5.1); Sodium 140 mmol/L (137-145); Total Bilirubin 0.5 mg/dL (0.2-1.3); Total Protein 5.9 g/dL (6.3-8.2)
[2022-05-10 10:51] LABS: Basophils # (A) 0.03 X 10*3/uL (0.00-0.10); Basophils % (A) 0.3 %; Eosinophils # (A) 0.12 X 10*3/uL (0.04-0.35); Eosinophils % (A) 1.2 %; HCT 36.6 % (37.2-46.3); HGB 11.7 g/dL (12.0-15.0); Immature Grans, Automated 0.3 %; Lymphocytes # (A) 2.66 X 10*3/uL (0.90-5.00); Lymphocytes % (A) 25.6 %; MCV 90.6 fL (80.0-97.0); Mean Platelet Volume 9.6 fL (9.5-12.2); Monocytes # (A) 0.64 X 10*3/uL (0.20-1.00); Monocytes % (A) 6.2 %; NRBC Per 100 WBC 0 /100 WBCS (0.0-0.0); Neutrophils # (A) 6.92 X 10*3/uL (1.80-7.70); Neutrophils % (A) 66.4 %; Platelet Count 346 X 10*3/uL (140-440); RBC 4.04 X 10*6/uL (4.10-5.20); RDW 13.4 % (11.5-14.5)
--- NOTE | 2022-05-10 11:03 | P.GSHP ---
History of Present Illness H&P Date: 05/10/22 CHIEF COMPLAINT: Abdominal pain HISTORY OF PRESENT ILLNESS: This is a 21-year-old female who presented to to the emergency room with complaints of epigastric and right upper quadrant abdominal pain for about one week. She was seen at [facility] yesterday and at that time was diagnosed with gallstones and discharged home with Zofran and Naprosyn. Patient reports that she had worsening right upper quadrant pain with nausea and vomiting. She reports that the pain and discomfort is in the epigastric area and moves up into the chest. Patient does have a history of portal vein thrombosis and underwent treatment in 2018. She is not on any blood thinners. 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 Patient denies any fever chills or sweats. She denies any past surgical history. Denies any cardiac history. PAST MEDICAL HISTORY: See list. PAST SURGICAL HISTORY: See list. MEDICATIONS: See list. ALLERGIES: See list. SOCIAL HISTORY: No illicit drug use. REVIEW OF SYSTEMS: CONSTITUTIONAL: Denies fever or chills. HEENT: Denies blurred vision, vision changes, or eye pain. Denies hemoptysis CARDIOVASCULAR: Denies chest pain or pressure. RESPIRATORY: No shortness of breath. GASTROINTESTINAL: See HPI for pertinent findings HEMATOLOGIC: Denies bleeding disorders. GENITOURINARY: Denies any blood in urine or increased urinary frequency. SKIN: Denies pruitis. Denies rash. PHYSICAL EXAM: VITAL SIGNS: Reviewed GENERAL: Well-developed in no acute distress. HEENT: No sclera icterus. Extraocular movements grossly intact. Moist buccal mucosa. Head is atraumatic, normocephalic. No nasal drainage. ABDOMEN: Soft. Nondistended. Tenderness to palpation of the right upper quadrant and epigastric area NEUROLOGIC: Alert and oriented. Cranial nerves II through XII grossly intact. LABORATORY DATA: WBC is 12.9 down to 10.4 hemoglobin 11.7 platelets 346 Sodium is 140 potassium is 3.8 creatinine 0.62 AST 37 ALT 22 alk phos 80 lipase 57 Urine culture pending IMAGING: CT of the chest done at [place] since no evidence of PE Abdominal ultrasound at [place] mild gallbladder wall thickening possibly due to under distention. No pericholecystic fluid or inflammation seen on same-day CT chest. Consider HIDA scan to rule out acute cholecystitis. Hyperechoic focus within the liver may represent hemangioma. Not seen on the CT of the chest. Patent portal vein. There are multiple gallstones with shadowing. positive Davidson sign. ASSESSMENT: 1. Right upper quadrant abdominal pain 2. Acute cholecystitis 3. Cholelithiasis 4. History of methadone abuse PLAN: -Patient scheduled for laparoscopic cholecystectomy today with Dr. Rodriguez -Keep patient nothing by mouth -Continue antibiotics -Continue IV fluids -Add IV Tylenol for pain -Continue supportive care Physician Dairy Nutrition Consultant note has been reviewed by physician. Signing provider agrees with the documented findings, assessment, and plan of care. I have personally seen and examined the patient, reviewed the MUD LOGGER /PAs history, exam and MDM and agree with the assessment and plan as written. Based on total visit time, I have performed more than 50% of the visit. As above: Patient with history and physical along with diagnostic studies suggesting acute cholecystitis. Patient's labs do not show significant elevation of liver enzymes. Options reviewed. We'll proceed with laparoscopic, possible open cholecystectomy at this time. Risks of bleeding, infection, bile leak, bile duct injury, retained common bile duct stone, trocar injury, conversion to an open procedure, hernia, anesthesia related complications were reviewed. The patient understands and wishes to proceed. Past Medical History Past Medical History: Asthma, Deep Vein Thrombosis (DVT) Additional Past Medical History / Comment(s): Obstetric history: First was a vaginal delivery. This is patient's second , she started her care with me early on. Blood type A+, abs negative, rubella immune, RPR nonreactive, hep is B-, toxoplasmosis negative, normal 1 hour glucose tolerance test, GBS postive. She is a history of a deep vein thrombosis 4 months after her last delivery when she was on control and smoking cigarettes. pt. states she has been taking asprin this . History of Any Multi-Drug Resistant Organisms: None Reported Past Surgical History: No Surgical Hx Reported Past Anesthesia/Blood Transfusion Reactions: No Reported Reaction Past Psychological History: ADD/ADHD, Anxiety, Depression Smoking Status: Former smoker Past Alcohol Use History: None Reported Additional Past Alcohol Use History / Comment(s): pt. states she was drinking alcohol in the begining of the but she didnt know she was , once pt. found out she was she stopped Past Drug Use History: Marijuana Additional Drug Use History / Comment(s): History of THC use with positive drug screen at 30 weeks. Also history of positive drug screen for amphetamines at 30 weeks. 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 - Past Family History Mother History Unknown: Yes Family Medical History: Cancer Additional Family Medical History / Comment(s): Kidney Cancer Medications and Allergies Home Medications Medication Instructions Recorded Confirmed Type Pnv No.95/Ferrous Fum/Folic AC 1 tab PO DAILY 01/20/18 05/09/22 History [ Multivitamin Tablet] Naproxen [Naprosyn] 500 mg PO BID PRN 05/09/22 05/09/22 History Ondansetron Odt [Zofran Odt] 4 mg PO BID PRN 05/09/22 05/09/22 History busPIRone HCL [Buspirone HCl] 10 mg PO DAILY 05/09/22 05/09/22 History Allergies Allergy/AdvReac Type Severity Reaction Status Date / Time diphenhydramine HCl Allergy Rash/Hives Verified 05/09/22 15:57 [From Benadryl] Sulfa (Sulfonamide Allergy Swelling Verified 05/09/22 15:57 Antibiotics) Surgical - Exam Vital Signs Temp Pulse Resp BP Pulse Ox 98.3 F 55 L 18 123/83 98 05/09/22 14:49 05/09/22 14:49 05/09/22 14:49 05/09/22 14:49 05/09/22 14:49 Results - Labs 05/10/22 06:51 05/10/22 09:44 Abnormal Lab Results - Last 24 Hours (Table) 05/09/22 05/09/22 05/09/22 Range/Units 15:40 15:40 15:55 WBC 12.9 H (3.8-10.6) k/uL RBC (4.10-5.20) X 10*6/uL Hgb (12.0-15.0) g/dL Hct (37.2-46.3) % Plt Count 452 H (150-450) k/uL Neutrophils # 10.9 H (1.3-7.7) k/uL Carbon Dioxide 21 L (22-30) mmol/L BUN 6 L (7-17) mg/dL AST (14-36) U/L Total Protein (6.3-8.2) g/dL Urine Appearance Cloudy H (Clear) Urine Protein 1+ H (Negative) Urine Ketones 4+ H (Negative) Ur Leukocyte Esterase Large H (Negative) Urine WBC 181 H (0-5) /hpf Ur Squamous Epith Cells 15 H (0-4) /hpf Urine Bacteria Rare H (None) /hpf Urine Mucus Many H (None) /hpf 05/10/22 05/10/22 Range/Units 06:51 09:44 WBC 10.40 H (3.8-10.6) k/uL RBC 4.04 L (4.10-5.20) X 10*6/uL Hgb 11.7 L (12.0-15.0) g/dL Hct 36.6 L (37.2-46.3) % Plt Count (150-450) k/uL Neutrophils # (1.3-7.7) k/uL Carbon Dioxide (22-30) mmol/L BUN (7-17) mg/dL AST 37 H (14-36) U/L Total Protein 5.9 L (6.3-8.2) g/dL Urine Appearance (Clear) Urine Protein (Negative) Urine Ketones (Negative) Ur Leukocyte Esterase (Negative) Urine WBC (0-5) /hpf Ur Squamous Epith Cells (0-4) /hpf Urine Bacteria (None) /hpf Urine Mucus (None) /hpf Microbiology - Last 24 Hours (Table) 05/09/22 15:55 Urine Culture - Preliminary Urine,Clean Catch Diabetes panel 05/09/22 05/10/22 Range/Units 15:40 09:44 Sodium 139 140 (137-145) mmol/L Potassium 4.3 3.8 (3.5-5.1) mmol/L Chloride 105 106 (98-107) mmol/L Carbon Dioxide 21 L 22 (22-30) mmol/L BUN 6 L 7 (7-17) mg/dL Creatinine 0.68 0.62 (0.52-1.04) mg/dL Glucose 99 85 (74-99) mg/dL Calcium 9.4 8.7 (8.4-10.2) mg/dL AST 35 37 H (14-36) U/L ALT 21 22 (4-34) U/L Alkaline Phosphatase 91 80 (38-126) U/L Total Protein 6.8 5.9 L (6.3-8.2) g/dL Albumin 4.2 3.7 (3.5-5.0) g/dL Calcium panel 05/09/22 05/10/22 Range/Units 15:40 09:44 Calcium 9.4 8.7 (8.4-10.2) mg/dL Albumin 4.2 3.7 (3.5-5.0) g/dL Pituitary panel 05/09/22 05/10/22 Range/Units 15:40 09:44 Sodium 139 140 (137-145) mmol/L Potassium 4.3 3.8 (3.5-5.1) mmol/L Chloride 105 106 (98-107) mmol/L Carbon Dioxide 21 L 22 (22-30) mmol/L BUN 6 L 7 (7-17) mg/dL Creatinine 0.68 0.62 (0.52-1.04) mg/dL Glucose 99 85 (74-99) mg/dL Calcium 9.4 8.7 (8.4-10.2) mg/dL Adrenal panel 05/09/22 05/10/22 Range/Units 15:40 09:44 Sodium 139 140 (137-145) mmol/L Potassium 4.3 3.8 (3.5-5.1) mmol/L Chloride 105 106 (98-107) mmol/L Carbon Dioxide 21 L 22 (22-30) mmol/L BUN 6 L 7 (7-17) mg/dL Creatinine 0.68 0.62 (0.52-1.04) mg/dL Glucose 99 85 (74-99) mg/dL Calcium 9.4 8.7 (8.4-10.2) mg/dL Total Bilirubin 0.5 0.5 (0.2-1.3) mg/dL AST 35 37 H (14-36) U/L ALT 21 22 (4-34) U/L Alkaline Phosphatase 91 80 (38-126) U/L Total Protein 6.8 5.9 L (6.3-8.2) g/dL Albumin 4.2 3.7 (3.5-5.0) g/dL
[2022-05-10 11:08] LABS: BUN/Creat Ratio 10.67 Ratio (12.00-20.00); Blood Urea Nitrogen 6.4 mg/dL (9.0-27.0); Calcium 8.5 mg/dL (8.7-10.3); Non-African American GFR(CKD) 129.4 (60.0-200.0); Potassium 3.8 mmol/L (3.5-5.5)
[2022-05-10] MEDS: ACETAMINOPHEN IV (For NPO) 1,000 MG in EMPTY BAG 1 BAG IVPB SCH ×3 (14:22→23:32)
[2022-05-10] MEDS ORDERED: HEPARIN SODIUM,PORCINE/PF 5,000 UNIT/0.5 ML SYRINGE SQ ONE (16:01)
[2022-05-10] MEDS ORDERED: LACTATED RINGERS 1,000 ML IV ONE (16:07)
[2022-05-10] MEDS ORDERED: BUPIVACAINE (PF) 0.25% 30 ML VIAL SQ ONE ×2 (17:31→18:29)
[2022-05-10] MEDS ORDERED: MIDAZOLAM 2 MG/2 ML VIAL ONE (18:02)
[2022-05-10] MEDS ORDERED: fentaNYL (PF) 50 MCG/ML 2 ML AMP ONE (18:02)
[2022-05-10] MEDS ORDERED: SUCCINYLCHOLINE CHLORIDE 200 MG/10 ML VIAL IV ONE (18:02)
[2022-05-10] MEDS ORDERED: HYDROmorphone (PF) 1 MG/ML ONE (18:02)
[2022-05-10] MEDS ORDERED: LIDOCAINE 2% INJ 20 MG/ML (2 ML VIAL) ONE (18:02)
[2022-05-10] MEDS ORDERED: ROCURONIUM 10 MG/ML (5 ML VIAL) IV ONE (18:02)
[2022-05-10] MEDS ORDERED: PROPOFOL 10 MG/ML 20 ML VIAL IV ONE (18:02)
[2022-05-10] MEDS ORDERED: GLYCOPYRROLATE 0.2 MG/ML 2 ML VIAL ONE (18:02)
[2022-05-10] MEDS ORDERED: NEOSTIGMINE 1 MG/ML 10 ML VIAL ONE (18:02)
[2022-05-10] MEDS ORDERED: SODIUM CHLORIDE 0.9% 100 ML with ceFAZolin 2,000 MG IV ONE ×2 (18:26)
[2022-05-10] MEDS ORDERED: HYDROcodone/APAP 5-325MG 1 EACH TAB PO PRN (19:10)
[2022-05-10] MEDS ORDERED: HYDROmorphone 1 MG/ML 1 ML SYRINGE IVP PRN (19:10)
--- NOTE | 2022-05-10 19:12 | P.OP ---
Date of Procedure: 05/10/22 Procedure(s) Performed: PREOPERATIVE DIAGNOSIS: Acute cholecystitis POSTOPERATIVE DIAGNOSIS: Same PROCEDURE: Laparoscopic cholecystectomy SURGEON: Jennifer EBL: Minimal see anesthesia record ANESTHESIA: Gen. COMPLICATIONS: None OPERATIVE PROCEDURE: The patient was brought and placed on the operating room table in the supine position. The patient was placed under general anesthesia at that time. The abdomen was prepped and draped in the usual sterile fashion. A small vertical infraumbilical incision was made. The fascia was grasped with the Isabelle forceps. The fascia was retracted anteriorly. The Veress needle was advanced into the peritoneal cavity. The saline drop test was normal. Insufflation took place up to 15 mmHg. A 5 mm optical trocar was advanced and the peritoneal cavity. 2 additional 5 mm trochars were placed in the right upper quadrant under direct visualization. A 12 mm trocar was advanced into the epigastric incision site. The gallbladder was retracted superiorly and laterally. The peritoneum overlying the infundibulum was bluntly dissected. The patient's cystic duct was visualized. The junction between the cystic duct common and hepatic duct was identified. The critical view of safety was achieved after blunt dissection. The cystic duct was then divided after placement of 3 12 mm clips on the patient's side and one on the specimen side. The cystic artery was identified and clipped as well. A small vessel was seen along the gallbladder fossa and clipped as well. The gallbladder was then removed from the liver bed using electrocautery. The gallbladder was then removed from the epigastric trocar site with an Endo Catch bag. The gallbladder fossa was irrigated with saline. There was no evidence of any bleeding or biliary drainage seen. The fascia at the 12 millimeter site was closed using a Caio-Jaycob 0 Vicryl stitch. The trochars were then removed. The skin at all 4 sites was closed using a 4-0 Monocryl stitch. Skin glue was utilized on the incision sites. At the end of this procedure the sponge and needle counts were correct. DISPOSITION: Stable to the recovery room
[2022-05-10] MEDS ORDERED: HYDROmorphone 0.5 MG/0.5 ML SYRINGE IVP ONE ×3 (19:34→20:34)
[2022-05-11] MEDS: SODIUM CHLORIDE 0.9% 1,000 ML IV SCH ×2 (01:47→12:00)
[2022-05-11] MEDS: MORPHINE SULFATE 4 MG/ML SYRINGE IV PRN ×3 (02:11→11:05)
[2022-05-11] MEDS: PIPERACILLIN-TAZOBACTAM 3.375 GM in SODIUM CHLORIDE 0.9% 100 ML IVPB SCH ×2 (02:12→09:23)
[2022-05-11] MEDS: ACETAMINOPHEN IV (For NPO) 1,000 MG in EMPTY BAG 1 BAG IVPB SCH (06:07)
[2022-05-11 08:46] VITALS: RESP 12
[2022-05-11] MEDS: PANTOPRAZOLE 40 MG/10 ML VIAL IV SCH (09:23)
--- NOTE | 2022-05-11 12:17 | P.DS ---
Providers Date of admission: 05/09/22 17:51 Expected date of discharge: 05/11/22 Attending physician: Misael Rodriguez Primary care physician: Mary Roy MD Hospital Course: Patient admitted with acute cholecystitis. Yesterday he underwent laparoscopic cholecystectomy. Today doing better. Pain is improving. Tolerating diet. We'll discharge today. Follow-up one week. Patient Condition at Discharge: Stable Plan - Discharge Summary New Discharge Prescriptions: No Action Pnv No.95/Ferrous Fum/Folic AC [ Multivitamin Tablet] 1 tab PO DAILY busPIRone HCL [Buspirone HCl] 10 mg PO DAILY Naproxen [Naprosyn] 500 mg PO BID PRN PRN Reason: Pain Ondansetron Odt [Zofran Odt] 4 mg PO BID PRN PRN Reason: Nausea Discharge Medication List Pnv No.95/Ferrous Fum/Folic AC [ Multivitamin Tablet] 1 tab PO DAILY 01/20/18 [History] Naproxen [Naprosyn] 500 mg PO BID PRN 05/09/22 [History] Ondansetron Odt [Zofran Odt] 4 mg PO BID PRN 05/09/22 [History] busPIRone HCL [Buspirone HCl] 10 mg PO DAILY 05/09/22 [History] Follow up Appointment(s)/Referral(s): Mary Roy MD [Primary Care Provider] - 1-2 days
[2022-05-11 14:04] VITALS: BP 110/71; PULSE 86; TEMP 98.3
== END 2022-05-11 15:26 | disposition home or self-care (01) ==
LOC: EC 14:45 → 6NMEDSUR 17:51
PROVIDERS: ADMIT Surgery; ATTEND Surgery
DX: K80.00 Calculus of gallbladder with acute cholecystitis without obstruction (principal); J45.909 Unspecified asthma, uncomplicated; F32.A Depression, unspecified; F41.9 Anxiety disorder, unspecified; F90.9 Attention-deficit hyperactivity disorder, unspecified type; F11.10 Opioid abuse, uncomplicated; F12.90 Cannabis use, unspecified, uncomplicated; Z79.899 Other long term (current) drug therapy; Z86.718 Personal history of other venous thrombosis and embolism; Z88.2 Allergy status to sulfonamides; Z87.891 Personal history of nicotine dependence; Z80.51 Family history of malignant neoplasm of kidney; Z32.02 Encounter for pregnancy test, result negative
CPT/HCPCS: 96376 ×3; 96366 ×3; 96375 ×2; 96365 ×2; 96361; 99285; 36415; 93005; 80053 ×2; 80048; 83690; 85025 ×2; 81001; 81025; 87040; 87086; 87077; 87186; 47562; G0378 ×3; J2543 ×3; J2270 ×3; J2405; J0690; J0131 ×2; C9113 ×3; J1170; J1644

== ENCOUNTER 2024-12-10 13:46 | Observation (INO) | payer OTHER ==
[2024-12-10] MEDS ORDERED: LORazepam 2 MG/ML INJ IV PRN ×4 (14:10→17:57)
--- NOTE | 2024-12-10 14:19 | ED ---
General Adult HPI - General Chief complaint: Seizure Stated complaint: seizure, ETOH Time Seen by Provider: 12/10/24 14:02 Source: patient, EMS, RN notes reviewed, old records reviewed Mode of arrival: EMS - History of Present Illness Initial comments: 24-year-old female presenting from [facility] after a witnessed seizure lasting 4 to 5 minutes. Patient is currently undergoing rehabilitation from alcohol abuse. She is been at [facility] for approximately 3 days. She has not had an alcohol withdrawal seizure in the past. Patient is able to provide history. She states that she also tested positive for on urine test. She is uncertain how far along she has. She has no abdominal pain or vaginal bleeding. No headache or head injury. - Related Data Home Medications Medication Instructions Recorded Confirmed Pnv No.95/Ferrous Fum/Folic AC 1 tab PO DAILY 01/20/18 12/10/24 [ Multivitamin Tablet] Acetaminophen Tab [Tylenol] 650 mg PO Q4H PRN 12/10/24 12/10/24 Albuterol Inhaler [Ventolin Hfa 2 puff INHALATION RT-QID PRN 12/10/24 12/10/24 Inhaler] Calcium Carbonate [Tums] 1,000 mg PO Q4H PRN 12/10/24 12/10/24 Docusate [Colace] 100 mg PO BID PRN 12/10/24 12/10/24 Doxylamine Succinate [Unisom] 12.5 mg PO TID PRN 12/10/24 12/10/24 Doxylamine Succinate [Unisom] 25 mg PO HS PRN 12/10/24 12/10/24 Pyridoxine HCl (Vitamin B6) 12.5 mg PO TID PRN 12/10/24 12/10/24 [Pyridoxine HCl] Allergies Allergy/AdvReac Type Severity Reaction Status Date / Time diphenhydramine HCl Allergy Rash/Hives/eyes Verified 12/10/24 14:34 [From Benadryl] swelling Sulfa (Sulfonamide Allergy Swelling/hi Verified 12/10/24 14:34 Antibiotics) ves Review of Systems ROS Statement: Those systems with pertinent positive or pertinent negative responses have been documented in the HPI. ROS Other: All systems not noted in ROS Statement are negative. Past Medical History Past Medical History: Asthma, Deep Vein Thrombosis (DVT) Additional Past Medical History / Comment(s): Obstetric history: First was a vaginal delivery. This is patient's second , she started her care with me early on. Blood type A+, abs negative, rubella immune, RPR nonreactive, hep is B-, toxoplasmosis negative, normal 1 hour glucose tolerance test, GBS postive. She is a history of a deep vein thrombosis 4 months after her last delivery when she was on control and smoking cigarettes. pt. states she has been taking asprin this History of Any Multi-Drug Resistant Organisms: None Reported Past Surgical History: Cholecystectomy Past Anesthesia/Blood Transfusion Reactions: No Reported Reaction Past Psychological History: ADD/ADHD, Anxiety, Depression Smoking Status: Current every day smoker Past Alcohol Use History: Abuse Past Drug Use History: Marijuana - Past Family History Mother History Unknown: Yes Family Medical History: Cancer Additional Family Medical History / Comment(s): Kidney Cancer General Exam General appearance: alert, in no apparent distress Head exam: Present: atraumatic, normocephalic Eye exam: Present: normal appearance, PERRL ENT exam: Present: normal exam Neck exam: Present: normal inspection. Absent: tenderness, meningismus Respiratory exam: Present: normal lung sounds bilaterally. Absent: respiratory distress, wheezes Cardiovascular Exam: Present: regular rate, normal rhythm GI/Abdominal exam: Present: soft. Absent: distended, tenderness, guarding Extremities exam: Present: normal inspection, normal capillary refill Neurological exam: Present: alert, oriented X3, CN II-XII intact. Absent: motor sensory deficit Psychiatric exam: Present: anxious Skin exam: Present: warm, dry, intact Course Vital Signs 12/10/24 12/10/24 13:49 16:02 Temperature 97.9 F Pulse Rate 84 82 Respiratory 20 20 Rate Blood Pressure 114/80 112/98 O2 Sat by Pulse 98 99 Oximetry Medical Decision Making - Medical Decision Making Was pt. sent in by a medical professional or institution (, PA, HINGING MACHINE OPERATOR, urgent care, hospital, or intermediate...) When possible be specific @ -Sent from [facility] Did you speak to anyone other than the patient for history (EMS, parent, family, police, friend...)? What history was obtained from this source @ -No Did you review nursing and triage notes (agree or disagree)? Why? @ -I reviewed and agree with nursing and triage notes Were old charts reviewed (outside hosp., previous admission, EMS record, old EKG, old radiological studies, urgent care reports/EKG's, intermediate records)? Report findings @ -No old charts were reviewed Differential Seizure: Recurrent seizure disorder, febrile seizure, alcohol withdrawal, stimulants, meningitis, encephalitis, intercranial hemorrhage, intracranial tumor, stroke, eclampsia, thyrotoxicosis, hypocalcemia, hyponatremia, hypernatremia, hypomagnesemia, psychogenic, this is not meant to be an all-inclusive list. EKG interpreted by me (3pts min.). @ -[Sinus rhythm rate of 69, KS interval 127, QRS duration 86, QTc [address] segment changes. X-rays interpreted by me (1pt min.). @ -None done CT interpreted by me (1pt min.). @ -None done U/S interpreted by me (1pt. min.). @ -None done What testing was considered but not performed or refused? (CT, X-rays, U/S, lab s)? Why? @ -None What meds were considered but not given or refused? Why? @ -None Did you discuss the management of the patient with other professionals (professionals i.e. , PA, HINGING MACHINE OPERATOR, lab, RT, psych nurse, social welfare research worker, sales recruiter, teacher, security vehicle patrol officer, disability case manager)? Give summary @ -[facility] Was smoking cessation discussed for >3mins.? @ -No Was critical care preformed (if so, how long)? @ -No Were there social determinants of health that impacted care today? How? (Homelessness, low income, unemployed, alcoholism, drug addiction, transportation, low edu. Level, literacy, decrease access to med. care, fci, rehab)? @ -No Was there de-escalation of care discussed even if they declined (Discuss DNR or withdrawal of care, Hospice)? DNR status @ -No What co-morbidities impacted this encounter? (DM, HTN, Smoking, COPD, CAD, Cancer, CVA, ARF, Chemo, Hep., AIDS, mental health diagnosis, sleep apnea, morbid obesity)? @ -[Alcohol abuse Was patient admitted / discharged? Hospital course, mention meds given and route, prescriptions, significant lab abnormalities, going to OR and other pertinent info. @ -24-year-old female with seizure, suspect alcohol withdrawal seizure. Patient has been abstaining from alcohol for the past 3 days and has been undergoing rehabilitation at [facility]. Patient is mildly confused upon arrival which does completely resolved. No further seizure activity in the emergency department. Workup including EKG, laboratory testing is unremarkable. Patient will be observed for alcohol withdrawal seizure. Admitted to [facility]. Undiagnosed new problem with uncertain prognosis? @ -No Drug Therapy requiring intensive monitoring for toxicity (Heparin, Nitro, Insulin, Cardizem)? @ -No Were any procedures done? @ -No Diagnosis/symptom? @ -Alcohol withdrawal seizure Acute, or Chronic, or Acute on Chronic? @Acute Uncomplicated (without systemic symptoms) or Complicated (systemic symptoms)? @ -Default Side effects of treatment? @ -No Exacerbation, Progression, or Severe Exacerbation? @ -No Poses a threat to life or bodily function? How? (Chest pain, USA, CT, pneumonia, PE, COPD, DKA, ARF, appy, cholecystitis, CVA, Diverticulitis, Homicidal, Suicidal, threat to staff... and all critical care pts) @Yes, DT, alcohol withdrawal seizure, status epilepticus - Lab Data Result diagrams: 12/10/24 14:46 12/10/24 14:46 Lab Results 12/10/24 12/10/24 12/10/24 Range/Units 14:46 14:46 16:02 WBC 9.75 (4.50-10.00) 10*3/uL RBC 3.93 L (4.10-5.20) 10*6/uL Hgb 12.8 (12.0-15.0) g/dL Hct 36.6 L (37.2-46.3) % MCV 93.1 (80.0-97.0) fL MCH 32.6 H (27.0-32.0) pg MCHC 35.0 (32.0-37.0) g/dL Plt Count 270 (140-440) 10*3/uL MPV 9.3 L (9.5-12.2) fL Immature Gran % (Auto) 0.4 % Neutrophils % 79.4 % Lymphocytes % 13.9 % Monocytes % 5.2 % Eosinophils % 0.7 % Basophils % 0.4 % Immature Gran # 0.04 (0.00-0.04) 10*3/uL Neutrophils # 7.73 H (1.80-7.70) 10*3/uL Lymphocytes # 1.36 (0.90-5.00) 10*3/uL Monocytes # 0.51 (0.20-1.00) 10*3/uL Eosinophils # 0.07 (0.04-0.35) 10*3/uL Basophils # 0.04 (0.00-0.10) 10*3/uL Sodium 133 L (137-145) mmol/L Potassium 4.2 (3.5-5.1) mmol/L Chloride 104 (98-107) mmol/L Carbon Dioxide 22 (22-30) mmol/L Anion Gap 7 mmol/L BUN 7 (7-17) mg/dL Creatinine 0.48 L (0.52-1.04) mg/dL Est GFR (CKD-EPI)AfAm >90 (>60 ml/min/1.73 sqM) Est GFR (CKD-EPI)NonAf >90 (>60 ml/min/1.73 sqM) Glucose 90 (74-99) mg/dL Calcium 9.5 (8.4-10.2) mg/dL Magnesium 2.1 (1.6-2.3) mg/dL Total Bilirubin 0.7 (0.2-1.3) mg/dL AST 33 (14-36) U/L ALT 16 (4-34) U/L Alkaline Phosphatase 61 (38-126) U/L Total Protein 6.5 (6.3-8.2) g/dL Albumin 3.7 (3.5-5.0) g/dL HCG, Quant 66725.5 mIU/mL Urine Color Light Yellow Urine Appearance Cloudy H (Clear) Urine pH 7.0 (5.0-8.0) Ur Specific [place] 1.016 (1.001-1.035) Urine Protein 1+ H (Negative) Urine Glucose (UA) Negative (Negative) Urine Ketones 1+ H (Negative) Urine Blood Negative (Negative) Urine Nitrite Negative (Negative) Urine Bilirubin Negative (Negative) Urine Urobilinogen <2.0 (<2.0) mg/dL Ur Leukocyte Esterase Small H (Negative) Urine RBC 1 (0-5) /hpf Urine WBC 7 H (0-5) /hpf Ur Squamous Epith Cells 14 H (0-4) /hpf Urine Bacteria Rare H (None) /hpf Urine Mucus Rare H (None) /hpf Serum Alcohol <10 mg/dL Disposition Clinical Impression: Alcohol withdrawal seizure Disposition: ADMITTED IP TO THIS HOSP Condition: Stable Is patient prescribed a controlled substance at d/c from ED?: No Referrals: Mary Roy MD [Primary Care Provider] - 1-2 days Time of Disposition: 17:19
[2024-12-10 14:52] LABS: Basophils # (A) 0.04 10*3/uL (0.00-0.10); Basophils % (A) 0.4 %; Eosinophils # (A) 0.07 10*3/uL (0.04-0.35); Eosinophils % (A) 0.7 %; HCT 36.6 % (37.2-46.3); HGB 12.8 g/dL (12.0-15.0); Lymphocytes # (A) 1.36 10*3/uL (0.90-5.00); Lymphocytes % (A) 13.9 %; MCH 32.6 pg (27.0-32.0); MCV 93.1 fL (80.0-97.0); Mean Platelet Volume 9.3 fL (9.5-12.2); Monocytes # (A) 0.51 10*3/uL (0.20-1.00); Monocytes % (A) 5.2 %; Neutrophils # (A) 7.73 10*3/uL (1.80-7.70); Neutrophils % (A) 79.4 %; Platelet Count 270 10*3/uL (140-440); RBC 3.93 10*6/uL (4.10-5.20); RDW 14.6 % (11.5-14.5); WBC 9.75 10*3/uL (4.50-10.00)
[2024-12-10] MEDS: SODIUM CHLORIDE 0.9% 1,000 ML IV SCH (14:54)
[2024-12-10] MEDS: SODIUM CHLORIDE 0.9% 500 ML 500 ML IV ONE (14:57)
[2024-12-10 15:04] LABS: ALT 16 U/L (4-34); AST 33 U/L (14-36); African American GFR (CKD) >90 (>60 ml/min/1.73 sqM); Albumin 3.7 g/dL (3.5-5.0); Alcohol <10 mg/dL; Alkaline Phosphatase 61 U/L (38-126); Anion Gap 7 mmol/L; Blood Urea Nitrogen 7 mg/dL (7-17); Calcium 9.5 mg/dL (8.4-10.2); Carbon Dioxide 22 mmol/L (22-30); Chloride 104 mmol/L (98-107); Glucose 90 mg/dL (74-99); Magnesium 2.1 mg/dL (1.6-2.3); Non-African American GFR(CKD) >90 (>60 ml/min/1.73 sqM); Potassium 4.2 mmol/L (3.5-5.1); Sodium 133 mmol/L (137-145); Total Bilirubin 0.7 mg/dL (0.2-1.3); Total Protein 6.5 g/dL (6.3-8.2)
[2024-12-10] MEDS: ACETAMINOPHEN TAB 325 MG TAB PO STA (15:18)
[2024-12-10 16:10] LABS: HCG,Quantitative Serum 41281.5 mIU/mL
[2024-12-10 16:19] LABS: Appearance,Urine Cloudy (Clear); Bacteria,Urine Rare /hpf; Bilirubin,Urine Negative (Negative); Blood,Urine Negative (Negative); Color,Urine Light Yellow; Glucose,Urine (UA) Negative (Negative); Ketones,Urine 1+ (Negative); Leukocyte Esterase,Urine Small (Negative); Mucus,Urine Rare /hpf; Nitrite,Urine Negative (Negative); Protein,Urine 1+ (Negative); RBC,Urine 1 /hpf (0-5); Specific Gravity,Urine 1.016 (1.001-1.035); Squamous Epithelial Cell,Urine 14 /hpf (0-4); Urobilinogen,Urine <2.0 mg/dL (<2.0); WBC,Urine 7 /hpf (0-5)
[2024-12-10] MEDS ORDERED: NALOXONE 0.4 MG/ML 1 ML VIAL IV PRN (17:17)
[2024-12-10] MEDS ORDERED: LORazepam 1 MG TAB PO PRN ×2 (17:55)
[2024-12-10] MEDS ORDERED: ALBUTEROL NEBULIZED 2.5 MG/3 ML INHALATION PRN (18:10)
--- NOTE | 2024-12-10 18:20 | P.HPIM ---
History of Present Illness H&P Date: 12/10/24 Patient is a 24-year-old female with history of alcohol abuse presenting from [place] after witnessed seizure that lasted 4 to 5 minutes. Patient states she is undergoing rehabilitation for alcohol abuse. She has been there for the past 3 days. She states leading up to the event she felt hot and passed out. She does not remember seizing and woke up feeling delirious. Denies any previous withdrawals. Patient states last alcoholic beverage was 5 days ago. She states that she drinks 4-5 shots of 100 proof alcohol daily. Patient also admits to amphetamine use. Patient states she had test that tested positive. She states she is around 16-18 weeks . Patient states she has had 3 previous pregnancies up to term with 3 successful vaginal deliveries. Denies any history of miscarriage. She states the day of her last menstrual period was that the end of July. States she has not been taking any prenatals. denies any patient denies any nausea, vomiting, morning sickness. Denies any vaginal discharge. Patient states 5 weeks into she had some vaginal spotting. Denies any fevers, chills, chest pain, shortness of breath, abdominal pain, urinary symptoms. hCG, Quant 41,281.5, WBC 9.75, Hgb 12.8, platelet 270, sodium 133, creatinine 0.48, BUN 7, serum alcohol < 10 UA displaying small leukocyte esterase, 8 urine R WBC 7, urine squamous epithelial cells elevated at 14 T97.9 F, UT 84, RR 20, BP 114/80, O2 saturation 98% on room air ED documentation reviewed. Review of systems: Pertinent positives and negatives as discussed in HPI, a complete review of systems was performed and all other systems are negative. Physical examination: Vital signs reviewed General: non toxic, no distress, appears at stated age, normal weight Derm: no unusual rashes/lesions, warm Head: atraumatic, normocephalic, symmetric Eyes: EOMI, anicteric sclera, pupils equal round reactive to light ENT: Nose and ears atraumatic Mouth: no lip lesion, mucus membranes moist, bite louis from tongue Cardiovascular: S1S2 reg, no murmur, positive dorsalis pedis pulse bilateral, no edema Lungs: CTA bilateral, no rhonchi, no rales, no accessory muscle use Abdominal: soft, nontender to palpation, no guarding Ext: muscle strength 5 out of 5 in all 4 extremities grossly, no gross muscle atrophy Neuro: CN II-XI grossly intact, no gross focal neuro deficits Psych: Alert, oriented to person, place, and time Assessment/Plan: Patient is a 24-year-old female with history of alcohol abuse presenting with acute seizure. #. Acute seizure #. Chronic alcohol abuse Patient states that her last alcoholic beverage was 5 days ago, likely putting her out the window of alcoholic withdrawal seizure Monitor for possible alcohol withdrawal with oral Ativan per [facility] protocol Ativan 2 mg IV every 6 hours as needed for seizures Thiamine 100 mg p.o. daily Folic acid 1 mg p.o. daily Normal saline at 75 cc an hour Prolactin ordered EEG ordered Cardiac monitoring Neurology consulted #. 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 History of Asthma Albuterol inhaler ordered DVT prophylaxis: ambulatory The patient is admitted as observation with an anticipated less than 2 midnight stay for evaluation of seizure. CODE STATUS: Full code Discussed with: Patient Anticipated discharge place: Pending clinical course Martha Ibanez MD PGY-1 IM Dictation was produced using [email or web address] dictation software. please excuse any gra mmatical, word or spelling errors. I have seen and evaluated the patient today. Discussed with the resident and agree with the residents finding and plan as documented in the resident's note. Changes highlighted in blue font. Past Medical History Past Medical History: Asthma, Deep Vein Thrombosis (DVT) Additional Past Medical History / Comment(s): Obstetric history: First was a vaginal delivery. This is patient's second , she started her care with me early on. Blood type A+, abs negative, rubella immune, RPR nonreactive, hep is B-, toxoplasmosis negative, normal 1 hour glucose tolerance test, GBS postive. She is a history of a deep vein thrombosis 4 months after her last delivery when she was on control and smoking cigarettes. pt. states she has been taking asprin this History of Any Multi-Drug Resistant Organisms: None Reported Past Surgical History: Cholecystectomy Past Anesthesia/Blood Transfusion Reactions: No Reported Reaction Past Psychological History: ADD/ADHD, Anxiety, Depression Smoking Status: Current every day smoker Past Alcohol Use History: Abuse Past Drug Use History: Marijuana - Past Family History Mother History Unknown: Yes Family Medical History: Cancer Additional Family Medical History / Comment(s): Kidney Cancer Medications and Allergies Home Medications Medication Instructions Recorded Confirmed Type Pnv No.95/Ferrous Fum/Folic AC 1 tab PO DAILY 01/20/18 12/10/24 History [ Multivitamin Tablet] Acetaminophen Tab [Tylenol] 650 mg PO Q4H PRN 12/10/24 12/10/24 History Albuterol Inhaler [Ventolin Hfa 2 puff INHALATION RT-QID PRN 12/10/24 12/10/24 History Inhaler] Calcium Carbonate [Tums] 1,000 mg PO Q4H PRN 12/10/24 12/10/24 History Docusate [Colace] 100 mg PO BID PRN 12/10/24 12/10/24 History Doxylamine Succinate [Unisom] 12.5 mg PO TID PRN 12/10/24 12/10/24 History Doxylamine Succinate [Unisom] 25 mg PO HS PRN 12/10/24 12/10/24 History Pyridoxine HCl (Vitamin B6) 12.5 mg PO TID PRN 12/10/24 12/10/24 History [Pyridoxine HCl] Allergies Allergy/AdvReac Type Severity Reaction Status Date / Time diphenhydramine HCl Allergy Rash/Hives/eyes Verified 12/10/24 14:34 [From Benadryl] swelling Sulfa (Sulfonamide Allergy Swelling/hi Verified 12/10/24 14:34 Antibiotics) ves Physical Exam Vitals: Vital Signs Temp Pulse Resp BP Pulse Ox 12/10/24 16:02 82 20 112/98 99 12/10/24 13:49 97.9 F 84 20 114/80 98 Intake and Output 12/10/24 12/10/24 12/10/24 06:59 14:59 22:59 Other: Weight 62.142 kg Results CBC & Chem 7: 12/10/24 14:46 12/10/24 14:46 Labs: Abnormal Lab Results - Last 24 Hours (Table) 12/10/24 12/10/24 12/10/24 Range/Units 14:46 14:46 16:02 RBC 3.93 L (4.10-5.20) 10*6/uL Hct 36.6 L (37.2-46.3) % MCH 32.6 H (27.0-32.0) pg MPV 9.3 L (9.5-12.2) fL Neutrophils # 7.73 H (1.80-7.70) 10*3/uL Sodium 133 L (137-145) mmol/L Creatinine 0.48 L (0.52-1.04) mg/dL Urine Appearance Cloudy H (Clear) Urine Protein 1+ H (Negative) Urine Ketones 1+ H (Negative) Ur Leukocyte Esterase Small H (Negative) Urine WBC 7 H (0-5) /hpf Ur Squamous Epith Cells 14 H (0-4) /hpf Urine Bacteria Rare H (None) /hpf Urine Mucus Rare H (None) /hpf
--- NOTE | 2024-12-10 19:02 | US ---
EXAMINATION TYPE: US OB >= 14 wk fetus DATE OF EXAM: 12/10/2024 COMPARISON: None CLINICAL INDICATION: Female, 24 years old with history of positive pregancy test; pt is currently on alc withdraw, pt is unaware exactly how far along she states roughly 16 weeks but is unsure an curren tly hasn't been told an estimated due date, pt is also unsure exactly first day of last period,pt sta janell roughly end of july, pt came to er for seizure TECHNIQUE: Transabdominal (TA) slightly limited scan due to movement FINDINGS: GESTATIONAL AGE / DATING Dates by LMP: 08/13/2024 17w,0 days) EDC: 05/20/2025 Dates by First Scan: No previous this is first scan Dates by Current Scan: (19weeks/4 days) EDC: 05/02/2025 Beta HCG (if available): 80574.5 SURVEY IUP: Single PLACENTA: Anterior PREVIA: No Previa CERVICAL LENGTH (transabdominal: norm > 3.0cm): 3.1cm BIOMETRY PRESENTATION: Variable LIE: Longitudinal BPD: 4.5cm 19weeks / 4 days HC: 17.3cm 19weeks / 6 days AC: 14.1cm 19weeks / 4 days FL: 2.9cm 19weeks / 0 days ESTIMATED WEIGHT IN GRAMS: 286grams ESTIMATED WEIGHT IN LBS/OZ: 0 lbs. 10oz. WEIGHT PERCENTAGE BASED ON ESTABLISHED DATES: 98% HC/AC: 1.2 FL/AC: 21% HEART RATE: 146bpm RHYTHM: Normal IMPRESSION: Single viable intrauterine as noted above. [facility], , 12/10/2024 6:59 PM
[2024-12-10] MEDS: FOLIC ACID 1 MG TAB PO SCH (19:55)
[2024-12-10] MEDS ORDERED: LORazepam 1 MG/0.5 ML VIAL IV PRN (23:39)
[2024-12-11 07:10] LABS: Basophils # (A) 0.04 10*3/uL (0.00-0.10); Basophils % (A) 0.4 %; Eosinophils # (A) 0.13 10*3/uL (0.04-0.35); Eosinophils % (A) 1.4 %; HCT 35.7 % (37.2-46.3); HGB 11.9 g/dL (12.0-15.0); Lymphocytes # (A) 2.09 10*3/uL (0.90-5.00); Lymphocytes % (A) 21.9 %; MCH 32.2 pg (27.0-32.0); MCHC 33.3 g/dL (32.0-37.0); MCV 96.5 fL (80.0-97.0); Mean Platelet Volume 8.9 fL (9.5-12.2); Monocytes # (A) 0.48 10*3/uL (0.20-1.00); Neutrophils # (A) 6.79 10*3/uL (1.80-7.70); Platelet Count 245 10*3/uL (140-440); RDW 14.9 % (11.5-14.5); WBC 9.56 10*3/uL (4.50-10.00)
[2024-12-11 07:42] LABS: African American GFR (CKD) >90 (>60 ml/min/1.73 sqM); Anion Gap 6 mmol/L; Blood Urea Nitrogen 3 mg/dL (7-17); Calcium 8.6 mg/dL (8.4-10.2); Carbon Dioxide 23 mmol/L (22-30); Chloride 105 mmol/L (98-107); Glucose 75 mg/dL (74-99); Magnesium 1.9 mg/dL (1.6-2.3); Non-African American GFR(CKD) >90 (>60 ml/min/1.73 sqM); Potassium 3.5 mmol/L (3.5-5.1); Sodium 134 mmol/L (137-145)
[2024-12-11 07:42] LABS: Appearance,Urine Cloudy (Clear); Bacteria,Urine Few /hpf; Bilirubin,Urine Negative (Negative); Blood,Urine Negative (Negative); Color,Urine Light Yellow; Glucose,Urine (UA) Negative (Negative); Ketones,Urine 1+ (Negative); Leukocyte Esterase,Urine Negative (Negative); Mucus,Urine Rare /hpf; Nitrite,Urine Positive (Negative); PH, Urine 6.5 (5.0-8.0); Protein,Urine Negative (Negative); Specific Gravity,Urine 1.015 (1.001-1.035); Squamous Epithelial Cell,Urine 3 /hpf (0-4); Urobilinogen,Urine <2.0 mg/dL (<2.0); WBC,Urine 5 /hpf (0-5)
[2024-12-11] MEDS: THIAMINE 100 MG TAB PO SCH (08:21)
[2024-12-11 08:42] LABS: Amphetamine Screen,Urine Not Detected (NotDetected); Barbiturate Screen,Urine Not Detected (NotDetected); Benzodiazepines Screen,Urine Not Detected (NotDetected); Cocaine Screen,Urine Not Detected (NotDetected); Methadone Screen, Urine Not Detected (NotDetected); Opiate Screen,Urine Not Detected (NotDetected); Oxycodone Screen, Urine Not Detected (NotDetected); Phencyclidine Screen,Urine Not Detected (NotDetected); Tricyclic Antidepressant,Urine Not Detected (NotDetected); Urn Cannabinoid Scrn Detected (NotDetected)
[2024-12-11] MEDS ORDERED: NON FORMULARY DRUG (Doxylamine Succinate [Unisom] 25 MG Tablet) PO PRN ×2 (11:12)
[2024-12-11] MEDS: ACETAMINOPHEN TAB 325 MG TAB PO PRN (11:29)
[2024-12-11] MEDS ORDERED: LORazepam 1 MG/0.5 ML VIAL IV PRN (11:51)
--- NOTE | 2024-12-11 12:38 | MR ---
INDICATION: Patient age:Female; 24 years old; Reason for study: new onset seizure, ; PHH. Comparison: None. TECHNIQUE: MRV of the brain was performed utilizing two-dimensional [id number] technique. FINDINGS: There is no evidence of venous occlusion or collateral circulation. There is no evidence of sinus th rombosis. IMPRESSION: No evidence of venous sinus thrombosis. [facility], , 12/11/2024 12:35 PM
--- NOTE | 2024-12-11 12:43 | P.CNNES ---
History of Present Illness Consult date: 12/11/24 Requesting physician: Martha Ibanez Reason for Consult: seizure, last alcoholic drink over 5 days ago History of Present Illness: This is a 24-year-old woman who is 19 weeks gestation, polysubstance abuse, alcohol use, vapes who presents emergency department because of seizure-like activity. Patient stated that she was at [facility] for her substance use and she stated that she was at [facility] for 3 days and her last drink was possibly 5 days ago prior to presenting our facility and that yesterday she was reported that she had seizure-like activity. Patient does not recall what happened and she just found herself in the EMS. She does not recall how long the seizure lasted for. But does have a tongue bite and urinary incontinence. Denies any bowel incontinence. She does not drink heavily and denies any history of seizures in the past. Her last Methamphetamine was 1-2 weeks ago. She denies any history of seizures in the past. Denies feeling sick. She vapes. She did acknowledge that she took prenatals and she was evaluated by OB in the past for her current . Patient denies of any headache, any nausea any vomiting, any focal weakness, any visual disturbance, any numbness. Some of the the workup during this hospital visit consisted of: Biotin is 146 test quantitative is 4100 I reviewed the rest of the lab work Urine drug screen is positive for marijuana and the rest is not detected and serum alcohol is less than 10 Review of Systems As per HPI. Past Medical History Past Medical History: Asthma, Deep Vein Thrombosis (DVT) Additional Past Medical History / Comment(s): Obstetric history: First was a vaginal delivery. This is patient's second , she started her care with de early on. Blood type A+, abs negative, rubella immune, RPR nonreactive, hep is B-, toxoplasmosis negative, normal 1 hour glucose tolerance test, GBS postive. She is a history of a deep vein thrombosis 4 months after her last delivery when she was on control and smoking cigarettes. pt. states she has been taking asprin this History of Any Multi-Drug Resistant Organisms: None Reported Past Surgical History: Cholecystectomy Past Anesthesia/Blood Transfusion Reactions: No Reported Reaction Past Psychological History: ADD/ADHD, Anxiety, Depression Smoking Status: Current every day smoker Past Alcohol Use History: Abuse Additional Past Alcohol Use History / Comment(s): pt. states she was drinking alcohol in the begining of the but she didnt know she was , once pt. found out she was she stopped Past Drug Use History: Marijuana, Methamphetamine Additional Drug Use History / Comment(s): History of THC use with positive drug screen at 30 weeks. Also history of positive drug screen for amphetamines at 30 weeks. 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 - Past Family History Mother History Unknown: Yes Family Medical History: Cancer Additional Family Medical History / Comment(s): Kidney Cancer Medications and Allergies Home Medications Medication Instructions Recorded Confirmed Type Pnv No.95/Ferrous Fum/Folic AC 1 tab PO DAILY 01/20/18 12/10/24 History [ Multivitamin Tablet] Acetaminophen Tab [Tylenol] 650 mg PO Q4H PRN 12/10/24 12/10/24 History Albuterol Inhaler [Ventolin Hfa 2 puff INHALATION RT-QID PRN 12/10/24 12/10/24 History Inhaler] Calcium Carbonate [Tums] 1,000 mg PO Q4H PRN 12/10/24 12/10/24 History Docusate [Colace] 100 mg PO BID PRN 12/10/24 12/10/24 History Doxylamine Succinate [Unisom] 12.5 mg PO TID PRN 12/10/24 12/10/24 History Doxylamine Succinate [Unisom] 25 mg PO HS PRN 12/10/24 12/10/24 History Pyridoxine HCl (Vitamin B6) 12.5 mg PO TID PRN 12/10/24 12/10/24 History [Pyridoxine HCl] busPIRone HCL 15 mg PO DAILY 12/11/24 12/11/24 History Allergies Allergy/AdvReac Type Severity Reaction Status Date / Time diphenhydramine HCl Allergy Rash/Hives/eyes Verified 12/10/24 14:34 [From Benadryl] swelling Sulfa (Sulfonamide Allergy Swelling/hi Verified 12/10/24 14:34 Antibiotics) ves Physical Examination - Vital Signs Vital Signs: Vital Signs Temp Pulse Pulse Resp BP BP Pulse Ox 12/11/24 11:16 97.8 F 62 17 105/71 99 12/11/24 08:18 98.5 F 60 17 101/65 100 12/11/24 04:00 71 110/73 100 12/11/24 00:00 86 119/83 99 12/10/24 21:10 98.6 F 90 116/77 100 12/10/24 20:03 98.7 F 76 18 118/83 100 12/10/24 16:02 82 20 112/98 99 12/10/24 13:49 97.9 F 84 20 114/80 98 Intake and Output 12/10/24 12/11/24 12/11/24 22:59 06:59 14:59 Intake Total 250 Balance 250 Intake: IV 10 Invasive Line 2 10 Oral 240 Other: Voiding Method Toilet # Voids 1 Weight 62.142 kg GENERAL: The patient is lying in bed and is not in acute distress. NEUROLOGICAL: Higher mental function: The patient is awake, alert, oriented to self, place and time. Patient is following commands. No aphasia and no neglect. Cranial nerves: The pupils are round, equal and reactive to light and accommodation. Visual rivero are full to confrontation throughout. Extraocular movement is intact no nystagmus is noted. Facial sensation is normal to touch throughout. The facial strength is normal throughout. Hearing is normal bilaterally to hand rub. Tongue is midline and moved [id number] without any difficulty. No dysarthria is noted. Has evidence of tongue bite on bilateral side of tongue laterally. Shoulder shrug is normal bilaterally. Motor: The strength is 5 over 5 throughout. Normal tone and bulk. Cerebellum: Normal finger to nose heel to hutchison bilaterally. Sensation: Sensation is normal to touch throughout. Reflexes (right/left): 2+ throughout Plantars are downgoing bilaterally. Results - Laboratory Findings CBC and BMP: 12/11/24 06:55 12/11/24 06:55 Abnormal Lab Findings: Abnormal Labs 12/10/24 12/10/24 12/10/24 14:46 14:46 14:46 RBC 3.93 L Hgb Hct 36.6 L MCH 32.6 H MPV 9.3 L Neutrophils # 7.73 H Sodium 133 L BUN Creatinine 0.48 L Prolactin 146.000 H Urine Appearance Urine Protein Urine Ketones Urine Nitrite Ur Leukocyte Esterase Urine WBC Ur Squamous Epith Cells Urine Bacteria Urine Mucus U Marijuana (THC) Screen 12/10/24 12/11/24 12/11/24 16:02 06:30 06:30 RBC Hgb Hct MCH MPV Neutrophils # Sodium BUN Creatinine Prolactin Urine Appearance Cloudy H Cloudy H Urine Protein 1+ H Urine Ketones 1+ H 1+ H Urine Nitrite Positive H Ur Leukocyte Esterase Small H Urine WBC 7 H Ur Squamous Epith Cells 14 H Urine Bacteria Rare H Few H Urine Mucus Rare H Rare H U Marijuana (THC) Screen Detected H 12/11/24 12/11/24 06:55 06:55 RBC 3.70 L Hgb 11.9 L Hct 35.7 L MCH 32.2 H MPV 8.9 L Neutrophils # Sodium 134 L BUN 3 L Creatinine 0.47 L Prolactin Urine Appearance Urine Protein Urine Ketones Urine Nitrite Ur Leukocyte Esterase Urine WBC Ur Squamous Epith Cells Urine Bacteria Urine Mucus U Marijuana (THC) Screen Assessment and Plan Assessment: This is a 24-year-old young woman who is 19 weeks gestation, polysubstance use, alcohol use, vapes whose last drink was about 5 days ago and was at [facility] and had a seizure-like activity with urinary incontinence and tongue bite. Her last meth amphetamine was about a week to 2 weeks ago New onset seizure-like activity likely provoked from her polysubstance withdrawal/alcohol withdrawal. Prenant and patient is 19 weeks gestation Substance abuse and uses methamphetamine and last use was about 1-2 weeks ago Alcohol use and last use was 5 days prior to presentation Marijuana use Nicotine use (Vapes) Plan: I spoke with the patient and this is her first seizure and it seems provoked. I gave her the option that I can start her on Keppra 500 mg twice daily as preventative for seizures but she she opted out of it and wants further testing. I ordered MRI of the brain and MRV of the head stat Will obtain an EEG. Precaution and seizure pads Patient is on Ativan 1 mg every hour as needed for seizure Per [facility] because of the seizures, avoid driving for 6 months until seizure-free, avoid heights, avoid swimming assisted or using heavy machinery OB team is consulted Patient is placed on thiamine 100 mg daily Was counseled on cessation of the alcohol use, polysubstance use, nicotine Patient is on folic acid 1 mg daily Defer the rest of the medical management to primary and other specialist Upon Discharge recommend the patient to follow-up with a neurologist as an outpatient within 2-week The plan discussed with the patient, her primary team and her nurse Thank for the consultation Time with Patient: Greater than 30
--- NOTE | 2024-12-11 13:00 | MR ---
INDICATION: Patient age:Female; 24 years old; Reason for study: new onset seizure, ; [facility]. COMPARISON: MRV head of the same date. TECHNIQUE: Multi planar, multi sequence imaging was performed through the brain without the administr ation of intravenous contrast. FINDINGS: The barrientos-white junctions, ventricular system, basal cisterns appear unremarkable. Age-appropriate cer ebral parenchymal volume. Diffusion-weighted imaging shows no evidence of restricted diffusion to sug gest acute/subacute infarct. Intracranial arterial flow voids are maintained. Both mesial temporal lo bes appear symmetric. Midline structures show no abnormality. Few foci of high T2/FLAIR signal intens ity are seen within the supratentorial periventricular and subcortical white matter. Examples include a right frontal lobe subcortical 3 mm focus (series 601, image 25). Approximately 4 foci identified. The susceptibility weighted images do not reveal any evidence for micro-hemorrhage. The bone marrow signal is within normal limits. The paranasal sinuses and globes are unremarkable. IMPRESSION: 1. No evidence of intracranial mass or acute/subacute infarct. 2. Nonspecific minimal white matter changes. Etiologies include demyelinating disease versus chronic migraines versus small vessel ischemic disease versus Lyme disease versus other considerations. [facility], , 12/11/2024 12:58 PM
[2024-12-11] MEDS: BENZOCAINE 20 % GEL 11.9 GM TUBE MM ONE (13:07)
--- NOTE | 2024-12-11 13:24 | P.PN ---
Subjective Progress Note Date: 12/11/24 Hospital Course: Patient is a 24-year-old female with history of alcohol abuse presenting from [facility] after witnessed seizure that lasted 4 to 5 minutes. Patient states she is undergoing rehabilitation for alcohol abuse. She has been there for the past 3 days. She states leading up to the event she felt hot and passed out. She does not remember seizing and woke up feeling delirious. Denies any previous withdrawals. Patient states last alcoholic beverage was 5 days ago. She states that she drinks 4-5 shots of 100 proof alcohol daily. Patient also admits to amphetamine use. Patient states she had test that tested positive. She states she is around 16-18 weeks . Patient states she has had 3 previous pregnancies up to term with 3 successful vaginal deliveries. Denies any history of miscarriage. She states the day of her last menstrual period was that the end of July. States she has not been taking any prenatals. denies any patient denies any nausea, vomiting, morning sickness. Denies any vaginal discharge. Patient states 5 weeks into she had some vaginal spotting. Denies any fevers, chills, chest pain, shortness of breath, abdominal pain, urinary symptoms. hCG, Quant 41,281.5, WBC 9.75, Hgb 12.8, platelet 270, sodium 133, creatinine 0.48, BUN 7, serum alcohol < 10 UA displaying small leukocyte esterase, 8 urine R WBC 7, urine squamous epithelial cells elevated at 14 T97.9 F, [place] 84, RR 20, BP 114/80, O2 saturation 98% on room air Subjective: Patient seen and examined at bedside. No acute events overnight. States her last drink was close to a week ago. Never previously had seizures. She states she knew that she has been for around 16-18 weeks. She states she regul natalie follows up with her OB doctor. Pertinent positives and negatives as discussed above, a complete review of systems was performed and all other systems are negative. Vitals: Signs Reviewed Physical Exam: General: nontoxic, no distress, appears at stated age Derm: warm, dry, intact Head: atraumatic, normocephalic, symmetric Eyes: EOMI, anicteric sclera Mouth: no lip lesion, mucus membranes moist, wounds from tongue bite Cardiovascular: S1 S2 reg, no murmur, rubs, or gallops Lungs: CTA bilateral, no rhonchi, no rales, no accessory muscle use Abdominal: soft, non-tender to palpataion, no appreciable organomegaly Extremities: no gross muscle atrophy, no edema, no contractures Neuro: Alert, Oriented, CNII-XII grossly intact, gait normal Psych: well appearing, appropriate affect Data Received Today: Pertinent Labs: Hgb 11.9, MCV 96.5, sodium 134, BUN 30, creatinine 0.47 Repeat UA displayed positive nitrite, negative urine protein UDS postive for cannabis Imaging: ultrasound showing single viable intrauterine at 19 weeks and 4 days estimated weight 286 g Brain MRI displaying no evidence of intracranial mass or acute/subacute infarct, nonspecific white matter changes Head/Brain MRV displaying no evidence of venous sinus thrombosis Assessment and Plan: Patient is a 24-year-old female with history of alcohol abuse presenting with acute seizure. #. Acute seizure #. Chronic alcohol abuse Patient states that her last alcoholic beverage was 6 days ago Monitor for possible alcohol withdrawal with oral Ativan per [facility] protocol - no Ativan was given overnight Ativan 1 mg IV every 6 hours as needed for seizures Thiamine 100 mg p.o. daily Folic acid 1 mg p.o. daily Normal saline at 75 cc an hour Orajel given for tongue bite EEG pending Brain MRI w/o con reviewed as above, white matter changes noted will discuss with neurology in AM MRI venography reviewed as above Cardiac monitoring Neurology consulted #. Viable Intrauterine at 19 weeks Pelvic ultrasound review as above Admits to history of amphetamine and alcohol abuse Has been aware of and follows up with her OB doctor Had episode of spotting 5 weeks into prolactin 146 Repeat UA showing postive urine nitrate, negative urine protein UDS positive for cannabis OB has been consulted, pending recommendations #. History of Asthma Albuterol inhaler ordered #. Anxiety Was previoulsy on Buspar, neurology refusing to resume Consider pysch consult DVT prophylaxis: ambulatory Code status: Full code Anticipated discharge place: Pending clinical course Anticipated discharge time: Pending clinical course Martha Ibanez MD PGY-1 IM Dictation was produced using [employer] dictation software. please excuse any gramm atical, word or spelling errors. I have seen and evaluated the patient today. Discussed with the resident and agree with the residents finding and plan as documented in the resident's note. Changes highlighted in blue font. Objective - Vital Signs Vital signs: Vital Signs Temp 98.6 F 12/10/24 21:10 Pulse 71 12/11/24 04:00 Resp 18 12/10/24 20:03 BP 110/73 12/11/24 04:00 Pulse Ox 100 12/11/24 04:00 FiO2 Intake & Output 12/10/24 12/11/24 12/11/24 18:59 06:59 18:59 Intake Total 10 Balance 10 Weight 62.142 kg 62.142 kg Intake: IV 10 Invasive Line 2 10 Other: # Voids 1 - Labs CBC & Chem 7: 12/11/24 14:51 12/11/24 14:51 Labs: Abnormal Lab Results - Last 24 Hours (Table) 12/10/24 12/10/24 12/10/24 Range/Units 14:46 14:46 14:46 RBC 3.93 L (4.10-5.20) 10*6/uL Hgb (12.0-15.0) g/dL Hct 36.6 L (37.2-46.3) % MCH 32.6 H (27.0-32.0) pg MPV 9.3 L (9.5-12.2) fL Neutrophils # 7.73 H (1.80-7.70) 10*3/uL Sodium 133 L (137-145) mmol/L BUN (7-17) mg/dL Creatinine 0.48 L (0.52-1.04) mg/dL Prolactin 146.000 H (2.100-29.200) ng/mL Urine Appearance (Clear) Urine Protein (Negative) Urine Ketones (Negative) Urine Nitrite (Negative) Ur Leukocyte Esterase (Negative) Urine WBC (0-5) /hpf Ur Squamous Epith Cells (0-4) /hpf Urine Bacteria (None) /hpf Urine Mucus (None) /hpf 12/10/24 12/11/24 12/11/24 Range/Units 16:02 06:30 06:55 RBC 3.70 L (4.10-5.20) 10*6/uL Hgb 11.9 L (12.0-15.0) g/dL Hct 35.7 L (37.2-46.3) % MCH 32.2 H (27.0-32.0) pg MPV 8.9 L (9.5-12.2) fL Neutrophils # (1.80-7.70) 10*3/uL Sodium (137-145) mmol/L BUN (7-17) mg/dL Creatinine (0.52-1.04) mg/dL Prolactin (2.100-29.200) ng/mL Urine Appearance Cloudy H Cloudy H (Clear) Urine Protein 1+ H (Negative) Urine Ketones 1+ H 1+ H (Negative) Urine Nitrite Positive H (Negative) Ur Leukocyte Esterase Small H (Negative) Urine WBC 7 H (0-5) /hpf Ur Squamous Epith Cells 14 H (0-4) /hpf Urine Bacteria Rare H Few H (None) /hpf Urine Mucus Rare H Rare H (None) /hpf 12/11/24 Range/Units 06:55 RBC (4.10-5.20) 10*6/uL Hgb (12.0-15.0) g/dL Hct (37.2-46.3) % MCH (27.0-32.0) pg MPV (9.5-12.2) fL Neutrophils # (1.80-7.70) 10*3/uL Sodium 134 L (137-145) mmol/L BUN 3 L (7-17) mg/dL Creatinine 0.47 L (0.52-1.04) mg/dL Prolactin (2.100-29.200) ng/mL Urine Appearance (Clear) Urine Protein (Negative) Urine Ketones (Negative) Urine Nitrite (Negative) Ur Leukocyte Esterase (Negative) Urine WBC (0-5) /hpf Ur Squamous Epith Cells (0-4) /hpf Urine Bacteria (None) /hpf Urine Mucus (None) /hpf
[2024-12-11 14:27] LABS: Appearance,Urine Cloudy (Clear); Bilirubin,Urine Negative (Negative); Blood,Urine Negative (Negative); Color,Urine Light Yellow; Glucose,Urine (UA) Negative (Negative); Ketones,Urine 1+ (Negative); Leukocyte Esterase,Urine Large (Negative); Mucus,Urine Rare /hpf; Nitrite,Urine Negative (Negative); PH, Urine 6.5 (5.0-8.0); Protein,Urine Negative (Negative); RBC,Urine 1 /hpf (0-5); Specific Gravity,Urine 1.015 (1.001-1.035); Squamous Epithelial Cell,Urine 25 /hpf (0-4); Urobilinogen,Urine <2.0 mg/dL (<2.0); WBC,Urine 23 /hpf (0-5)
[2024-12-11 15:09] LABS: Basophils # (A) 0.02 10*3/uL (0.00-0.10); Basophils % (A) 0.2 %; Eosinophils # (A) 0.07 10*3/uL (0.04-0.35); Eosinophils % (A) 0.7 %; HCT 37.5 % (37.2-46.3); Lymphocytes # (A) 1.46 10*3/uL (0.90-5.00); Lymphocytes % (A) 15.3 %; MCH 33.2 pg (27.0-32.0); MCHC 34.7 g/dL (32.0-37.0); MCV 95.7 fL (80.0-97.0); Mean Platelet Volume 9.4 fL (9.5-12.2); Monocytes # (A) 0.31 10*3/uL (0.20-1.00); Monocytes % (A) 3.3 %; Neutrophils # (A) 7.62 10*3/uL (1.80-7.70); Platelet Count 289 10*3/uL (140-440); RBC 3.92 10*6/uL (4.10-5.20); RDW 14.9 % (11.5-14.5); WBC 9.53 10*3/uL (4.50-10.00)
[2024-12-11] MEDS: busPIRone HCl 5 MG TAB PO SCH (18:20)
[2024-12-11 20:42] VITALS: RESP 16
[2024-12-12 03:53] VITALS: TEMP 97.6
[2024-12-12 06:32] LABS: Basophils # (A) 0.03 10*3/uL (0.00-0.10); Basophils % (A) 0.2 %; Eosinophils # (A) 0.14 10*3/uL (0.04-0.35); Eosinophils % (A) 0.9 %; HCT 35.6 % (37.2-46.3); HGB 12.3 g/dL (12.0-15.0); Lymphocytes # (A) 1.47 10*3/uL (0.90-5.00); Lymphocytes % (A) 9.1 %; MCH 32.8 pg (27.0-32.0); MCHC 34.6 g/dL (32.0-37.0); MCV 94.9 fL (80.0-97.0); Mean Platelet Volume 9.7 fL (9.5-12.2); Monocytes # (A) 0.56 10*3/uL (0.20-1.00); Monocytes % (A) 3.5 %; Neutrophils # (A) 13.86 10*3/uL (1.80-7.70); Neutrophils % (A) 85.8 %; Platelet Count 276 10*3/uL (140-440); RBC 3.75 10*6/uL (4.10-5.20); RDW 14.7 % (11.5-14.5); WBC 16.14 10*3/uL (4.50-10.00)
[2024-12-12 06:46] LABS: ALT 14 U/L (4-34); AST 24 U/L (14-36); African American GFR (CKD) >90 (>60 ml/min/1.73 sqM); Albumin 3.1 g/dL (3.5-5.0); Alkaline Phosphatase 66 U/L (38-126); Anion Gap 9 mmol/L; Blood Urea Nitrogen 8 mg/dL (7-17); Calcium 8.9 mg/dL (8.4-10.2); Carbon Dioxide 21 mmol/L (22-30); Chloride 102 mmol/L (98-107); Glucose 72 mg/dL (74-99); Magnesium 1.8 mg/dL (1.6-2.3); Non-African American GFR(CKD) >90 (>60 ml/min/1.73 sqM); Potassium 3.7 mmol/L (3.5-5.1); Sodium 132 mmol/L (137-145); Total Bilirubin 0.4 mg/dL (0.2-1.3); Total Protein 5.7 g/dL (6.3-8.2)
[2024-12-12 10:10] LABS: Hepatitis B Surface Antigen Nonreactive (Nonreactive)
--- NOTE | 2024-12-12 11:22 | P.OBCN ---
History of Present Illness Consult date: 12/12/24 Reason for consult: other (19 weeks , alcohol withdrawal) History of present illness: The patient is a 24-year-old 4 para 3-0-0-3 who presented to the hospital from [facility] as documented in the primary care provider's notes where she has been undergoing treatment for alcohol withdrawal. She has admitted to a moderate to significant amount of alcohol intake daily and, while at [facility], experienced a seizure or seizure-like activity with loss of consciousness and a postictal state. She has had care through an office in the [place] area. She reports normal movement and has no related complaints today. There is no vaginal bleeding or any other concerns related to the . Ultrasound done through the emergency room demonstrated normal findings with the gestational age at approximately 19+ weeks. There were no placental findings of concern and no evidence of anomalies on limited scan. Obstetrical history: 4 para 3-0-0-3 with 3 term vaginal deliveries. Current known statistics are listed in history of present illness. labs have been drawn to have them on record at our facility. Gynecologic history: Noncontributory Review of Systems Review of systems is confined to history of present illness. Past Medical History Past Medical History: Asthma, Deep Vein Thrombosis (DVT) Additional Past Medical History / Comment(s): Obstetric history: First was a vaginal delivery. This is patient's second , she started her care with me early on. Blood type A+, abs negative, rubella immune, RPR nonreactive, hep is B-, toxoplasmosis negative, normal 1 hour glucose tolerance test, GBS postive. She is a history of a deep vein thrombosis 4 months after her last delivery when she was on control and smoking cigarettes. pt. states she has been taking asprin this History of Any Multi-Drug Resistant Organisms: None Reported Past Surgical History: Cholecystectomy Past Anesthesia/Blood Transfusion Reactions: No Reported Reaction Past Psychological History: ADD/ADHD, Anxiety, Depression Smoking Status: Current every day smoker Past Alcohol Use History: Abuse Additional Past Alcohol Use History / Comment(s): pt. states she was drinking alcohol in the begining of the but she didnt know she was , once pt. found out she was she stopped Past Drug Use History: Marijuana, Methamphetamine Additional Drug Use History / Comment(s): History of THC use with positive drug screen at 30 weeks. Also history of positive drug screen for amphetamines at 30 weeks. 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 - Past Family History Mother History Unknown: Yes Family Medical History: Cancer Additional Family Medical History / Comment(s): Kidney Cancer Medications and Allergies Home Medications Medication Instructions Recorded Confirmed Type Pnv No.95/Ferrous Fum/Folic AC 1 tab PO DAILY 01/20/18 12/10/24 History [ Multivitamin Tablet] Acetaminophen Tab [Tylenol] 650 mg PO Q4H PRN 12/10/24 12/10/24 History Albuterol Inhaler [Ventolin Hfa 2 puff INHALATION RT-QID PRN 12/10/24 12/10/24 History Inhaler] Calcium Carbonate [Tums] 1,000 mg PO Q4H PRN 12/10/24 12/10/24 History Docusate [Colace] 100 mg PO BID PRN 12/10/24 12/10/24 History Doxylamine Succinate [Unisom] 12.5 mg PO TID PRN 12/10/24 12/10/24 History Doxylamine Succinate [Unisom] 25 mg PO HS PRN 12/10/24 12/10/24 History Pyridoxine HCl (Vitamin B6) 12.5 mg PO TID PRN 12/10/24 12/10/24 History [Pyridoxine HCl] busPIRone HCL 15 mg PO DAILY 12/11/24 12/11/24 History Allergies Allergy/AdvReac Type Severity Reaction Status Date / Time diphenhydramine HCl Allergy Rash/Hives/eyes Verified 12/10/24 14:34 [From Benadryl] swelling Sulfa (Sulfonamide Allergy Swelling/hi Verified 12/10/24 14:34 Antibiotics) ves Exam Vital Signs Temp Pulse Resp BP BP Pulse Ox 12/12/24 09:24 97.6 F 79 16 106/61 98 12/12/24 03:45 97.6 F 81 16 121/87 100 12/12/24 00:00 98.8 F 91 16 102/60 98 12/11/24 20:00 98.4 F 90 16 114/76 98 12/11/24 16:05 98 F 74 17 100/60 98 12/11/24 11:16 97.8 F 62 17 105/71 99 Intake and Output 12/11/24 12/12/24 12/12/24 22:59 06:59 14:59 Intake Total 240 10 Balance 240 10 Intake: IV 10 Invasive Line 2 10 Oral 240 Other: Voiding Method Toilet Toilet Toilet # Voids 3 Weight 64.8 kg In general, this is a well-developed, well-nourished white female in no acute distress. She appears alert and well oriented. Her heart has a regular rhythm and rate without murmur. Her lungs clear to auscultation bilaterally in all rivero. Her abdomen is gravid, fundal height is appropriate for gestational age at just below the umbilicus. There are no masses aside from the uterine fundus and there is no tenderness throughout. Her extremities are without any cyanosis, clubbing, or edema and are nontender to palpation. Pelvic examination is deferred. Results Result Diagrams: 12/12/24 05:43 12/12/24 05:43 Abnormal Lab Results - Last 24 Hours (Table) 12/11/24 12/11/24 12/11/24 Range/Units 12:01 14:51 14:51 WBC (4.50-10.00) 10*3/uL RBC 3.92 L (4.10-5.20) 10*6/uL Hct (37.2-46.3) % MCH 33.2 H (27.0-32.0) pg MPV 9.4 L (9.5-12.2) fL Immature Gran # 0.05 H (0.00-0.04) 10*3/uL Neutrophils # (1.80-7.70) 10*3/uL Sodium (137-145) mmol/L Carbon Dioxide (22-30) mmol/L Creatinine (0.52-1.04) mg/dL Glucose (74-99) mg/dL Total Protein (6.3-8.2) g/dL Albumin (3.5-5.0) g/dL Urine Appearance Cloudy H (Clear) Urine Ketones 1+ H (Negative) Ur Leukocyte Esterase Large H (Negative) Urine WBC 23 H (0-5) /hpf Ur Squamous Epith Cells 25 H (0-4) /hpf Urine Mucus Rare H (None) /hpf Rubella IgG Antibody 76.00 H (0.00-9.00) IU/mL 12/11/24 12/12/24 12/12/24 Range/Units 14:51 05:43 05:43 WBC 16.14 H (4.50-10.00) 10*3/uL RBC 3.75 L (4.10-5.20) 10*6/uL Hct 35.6 L (37.2-46.3) % MCH 32.8 H (27.0-32.0) pg MPV (9.5-12.2) fL Immature Gran # 0.08 H (0.00-0.04) 10*3/uL Neutrophils # 13.86 H (1.80-7.70) 10*3/uL Sodium 132 L (137-145) mmol/L Carbon Dioxide 21 L (22-30) mmol/L Creatinine 0.45 L (0.52-1.04) mg/dL Glucose 106 H 72 L (74-99) mg/dL Total Protein 5.7 L (6.3-8.2) g/dL Albumin 3.1 L (3.5-5.0) g/dL Urine Appearance (Clear) Urine Ketones (Negative) Ur Leukocyte Esterase (Negative) Urine WBC (0-5) /hpf Ur Squamous Epith Cells (0-4) /hpf Urine Mucus (None) /hpf Rubella IgG Antibody (0.00-9.00) IU/mL Assessment and Plan (1) 19 weeks gestation of Current Visit: Yes Status: Acute Code(s): Z3A.19 - 19 WEEKS GESTATION OF SNOMED Code(s): 20542095 (2) Alcohol withdrawal seizure Current Visit: Yes Status: Acute Code(s): F10.939 - ALCOHOL USE, UNSPECIFIED WITH WITHDRAWAL, UNSPECIFIED; R56.9 - UNSPECIFIED CONVULSIONS SNOMED Code(s): 920535833 Plan: wellbeing has been documented. There is no further intervention at this time from an obstetrical standpoint. She does have care outside of the hospital and is recommended to follow-up with them after release from the hospital and clearance from [facility] [place]. The remainder of her management at this time is medical in nature and we will allow the medical team to further manage. Neurology input is appreciated.
[2024-12-12 11:56] VITALS: BP 95/58; PULSE 81
--- NOTE | 2024-12-12 13:11 | P.PN ---
Subjective Progress Note Date: 12/12/24 I am following-up with patient and she is doing drastically better. No further seizure-like episodes. No new neurological issues. Objective - Vital Signs Vital signs: Vital Signs Temp 97.6 F 12/12/24 09:24 Pulse 81 12/12/24 11:55 Resp 16 12/12/24 11:55 BP 95/58 12/12/24 11:55 Pulse Ox 99 12/12/24 11:55 FiO2 Intake & Output 12/11/24 12/12/24 12/12/24 18:59 06:59 18:59 Intake Total 260 240 10 Output Total 900 Balance -640 240 10 Weight 64.8 kg Intake: IV 20 10 Invasive Line 2 20 10 Oral 240 240 Output: Urine 900 Other: Voiding Method Toilet Toilet Toilet # Voids 3 - Exam GENERAL: The patient is lying in bed and is not in acute distress. NEUROLOGICAL: Higher mental function: The patient is awake, alert, oriented to self, place and time. Patient is following commands. No aphasia and no neglect. Cranial nerves: The pupils are round, equal and reactive to light and accommodation. Visual rivero are full to confrontation throughout. Extraocular movement is intact no nystagmus is noted. Facial sensation is normal to touch throughout. The facial strength is normal throughout. Hearing is normal bilaterally to hand rub. Tongue is midline and moved [id number] without any difficulty. No dysarthria is noted. Has evidence of tongue bite on bilateral side of tongue laterally. Shoulder shrug is normal bilaterally. Motor: The strength is 5 over 5 throughout. Normal tone and bulk. Cerebellum: Normal finger to nose heel to hutchison bilaterally. Sensation: Sensation is normal to touch throughout. Some of the the workup during this hospital visit consisted of: Prolactin is 146 test quantitative is 4100 I reviewed the rest of the lab work Urine drug screen is positive for marijuana and the rest is not detected and serum alcohol is less than 10 MRI of the brain is reported as no evidence of intracranial mass or acute/subacute infarct. Nonspecific minimal white matter changes. Etiologies include demyelinating disease versus chronic migraine versus small vascular disease versus Lyme disease versus other consideration. I personally reviewed the MRI and I felt she had minimal nonspecific white matter lesions and they did not seem significant for demyelinating disease at this time. MRV of the brain is reported as no evidence of venous sinus thrombosis. - Labs CBC & Chem 7: 04/27/25 05:43 12/12/24 05:43 Labs: Abnormal Lab Results - Last 24 Hours (Table) 12/11/24 12/11/24 12/11/24 Range/Units 12:01 14:51 14:51 WBC (4.50-10.00) 10*3/uL RBC 3.92 L (4.10-5.20) 10*6/uL Hct (37.2-46.3) % MCH 33.2 H (27.0-32.0) pg MPV 9.4 L (9.5-12.2) fL Immature Gran # 0.05 H (0.00-0.04) 10*3/uL Neutrophils # (1.80-7.70) 10*3/uL Sodium (137-145) mmol/L Carbon Dioxide (22-30) mmol/L Creatinine (0.52-1.04) mg/dL Glucose (74-99) mg/dL Total Protein (6.3-8.2) g/dL Albumin (3.5-5.0) g/dL Urine Appearance Cloudy H (Clear) Urine Ketones 1+ H (Negative) Ur Leukocyte Esterase Large H (Negative) Urine WBC 23 H (0-5) /hpf Ur Squamous Epith Cells 25 H (0-4) /hpf Urine Mucus Rare H (None) /hpf Rubella IgG Antibody 76.00 H (0.00-9.00) IU/mL 12/11/24 12/12/24 12/12/24 Range/Units 14:51 05:43 05:43 WBC 16.14 H (4.50-10.00) 10*3/uL RBC 3.75 L (4.10-5.20) 10*6/uL Hct 35.6 L (37.2-46.3) % MCH 32.8 H (27.0-32.0) pg MPV (9.5-12.2) fL Immature Gran # 0.08 H (0.00-0.04) 10*3/uL Neutrophils # 13.86 H (1.80-7.70) 10*3/uL Sodium 132 L (137-145) mmol/L Carbon Dioxide 21 L (22-30) mmol/L Creatinine 0.45 L (0.52-1.04) mg/dL Glucose 106 H 72 L (74-99) mg/dL Total Protein 5.7 L (6.3-8.2) g/dL Albumin 3.1 L (3.5-5.0) g/dL Urine Appearance (Clear) Urine Ketones (Negative) Ur Leukocyte Esterase (Negative) Urine WBC (0-5) /hpf Ur Squamous Epith Cells (0-4) /hpf Urine Mucus (None) /hpf Rubella IgG Antibody (0.00-9.00) IU/mL Assessment and Plan Assessment: This is a 24-year-old young woman who is 19 weeks gestation, polysubstance use, alcohol use, vapes whose last drink was about 5 days ago and was at [place] and had a seizure-like activity with urinary incontinence and tongue bite. Her last meth amphetamine was about a week to 2 weeks ago New onset seizure-like activity likely provoked from her polysubstance withdrawal/alcohol withdrawal. MRI Brain and MRV head is unremarkable. Prelimnary EEG is normal--no further seizures Prenant and patient is 19 weeks gestation Substance abuse and uses methamphetamine and last use was about 1-2 weeks ago Alcohol use and last use was 5 days prior to presentation Marijuana use Nicotine use (Vapes) Plan: I spoke with the patient and this is her first seizure and it seems provoked. I gave her the option that I can start her on Keppra 500 mg twice daily as preventative but she still opted. Precaution and seizure pads Patient is on Ativan 1 mg every hour as needed for seizure Per [facility] because of the seizures, avoid driving for 6 months until seizure-free, avoid heights, avoid swimming assisted or using heavy machinery OB team is consulted Patient is placed on thiamine 100 mg daily Was counseled on cessation of the alcohol use, polysubstance use, nicotine Patient is on folic acid 1 mg daily Defer the rest of the medical management to primary and other specialist Upon Discharge recommend the patient to follow-up with a neurologist as an outpatient within 2-week The plan discussed with the patient, her primary team. There is no further neurological work-up. Will sign off. Please reconsult if needed. Time with Patient: Less than 30
--- NOTE | 2024-12-12 17:48 | P.DS ---
Providers Date of admission: 12/10/24 17:17 Expected date of discharge: 12/12/24 Attending physician: Rakan Raya Consults: 12/10/24 17:58 Consult Physician Routine Consulting Provider: Sanya Linares Consult Reason/Comments: seizure, last alcoholic drink over 5 days ago Do you want consulting provider notified?: Yes 12/11/24 09:25 Consult Physician Routine Consulting Provider: Roc Velasco Consult Reason/Comments: pregnency and etoh use Do you want consulting provider notified?: Yes Primary care physician: Mary Roy MD Hospital Course: Discharge Diagnosis: New onset seizure, likely related to alcohol withdrawal Chronic alcohol use Intrauterine Asthma Anxiety Hospital Course: Patient is a 24-year-old with history of alcohol abuse presenting from [facility] after witnessed seizure that lasted 4 to 5 minutes. With urine . In the ER labs were remarkable for elevated quantity beta-hCG, hemoglobin of 12.9, and sodium of 133. Vitals were stable. Admitted with neurology and DIRECT CARE SUPERVISOR consultation. Underwent MRI of the brain and MRV both which showed no acute process. Underwent EEG which showed no acute epileptiform discharges. Cleared by neurology. Discharged back to [facility] in stable condition. Did not need any doses of IV Ativan during hospital stay. Follow-up: Explicitly explained to patient no driving for 6 months according to [place] law. Should follow-up with neurology in outpatient basis. No medication changes were made at this time. Patient seen and examined at bedside. Doing well. Still feeling some muscle aches and pains. Otherwise feeling better than yesterday. Vital signs reviewed and stable. General: Nontoxic, no distress, appears at stated age Cardiovascular: S1S2 reg, no murmur, positive posterior tibial pulse bilateral, Lungs: CTA bilateral, no rhonchi, no rales, no accessory muscle use Abdominal: Soft, nontender to palpation, no guarding, no appreciable organomegaly Ext: No gross muscle atrophy, no edema b/l lower extremities, no contractures Neuro: CN II-XI grossly intact, no focal neuro deficits Psych: Alert, oriented, appropriate affect A total of 35 minutes of time were spent preparing this complex discharge summary. Patient was discharged on 12/12/24. This dictation was prepared using [employer] voice recognition software. Though every attempt is made to correct errors during dictation some may still exist. Patient Condition at Discharge: Stable Plan - Discharge Summary Discharge Rx Participant: Yes New Discharge Prescriptions: Continue Pnv No.95/Ferrous Fum/Folic AC [ Multivitamin Tablet] 1 tab PO DAILY Calcium Carbonate [Tums] 1,000 mg PO Q4H PRN PRN Reason: Heartburn Doxylamine Succinate [Unisom] 25 mg PO HS PRN PRN Reason: Nausea Doxylamine Succinate [Unisom] 12.5 mg PO TID PRN PRN Reason: Nausea Albuterol Inhaler [Ventolin Hfa Inhaler] 2 puff INHALATION RT-QID PRN PRN Reason: Shortness Of Breath Acetaminophen Tab [Tylenol] 650 mg PO Q4H PRN PRN Reason: Pain Pyridoxine HCl (Vitamin B6) [Pyridoxine HCl] 12.5 mg PO TID PRN PRN Reason: Nausea Docusate [Colace] 100 mg PO BID PRN PRN Reason: Constipation busPIRone HCL 15 mg PO DAILY Discharge Medication List Pnv No.95/Ferrous Fum/Folic AC [ Multivitamin Tablet] 1 tab PO DAILY 01/20/18 [History] Acetaminophen Tab [Tylenol] 650 mg PO Q4H PRN 12/10/24 [History] Albuterol Inhaler [Ventolin Hfa Inhaler] 2 puff INHALATION RT-QID PRN 12/10/24 [History] Calcium Carbonate [Tums] 1,000 mg PO Q4H PRN 12/10/24 [History] Docusate [Colace] 100 mg PO BID PRN 12/10/24 [History] Doxylamine Succinate [Unisom] 12.5 mg PO TID PRN 12/10/24 [History] Doxylamine Succinate [Unisom] 25 mg PO HS PRN 12/10/24 [History] Pyridoxine HCl (Vitamin B6) [Pyridoxine HCl] 12.5 mg PO TID PRN 12/10/24 [History] busPIRone HCL 15 mg PO DAILY 12/11/24 [History] Follow up Appointment(s)/Referral(s): Mariano Funez MD [REFERRING] - 1 Week (Please call to schedule appointment) Mary Roy MD [Primary Care Provider] - 1-2 days (Please call to schedule appointment) Activity/Diet/Wound Care/Special Instructions: Activity: as tolerated Diet: regular Special Instructions: No driving for 6 months Follow with your OB Discharge/Stand Alone Forms: Outpatient Counseling, Inp Substance Abuse Facilities Discharge Disposition: HOME SELF-CARE
--- NOTE | 2024-12-13 05:26 | EEG ---
ELECTROENCEPHALOGRAM REPORT CLINICAL HISTORY: This is a 24-year-old young female with new-onset seizure-like activity. The video EEG is obtained to evaluate for seizure epileptiform activity. RELEVANT MEDICATION: Ativan p.r.n. EEG TYPE: This is a routine 21-channel EEG with video using the 10/20 electrode placement system. DESCRIPTION: Wakefulness is only obtained. During awake state, the posterior-dominant rhythm consists of [id number] voltage of 10 hertz activity that is well modulated and well sustained. There is no physiological stage 2 sleep architecture. There is no focal slowing. Interictal and ictal is none. ACTIVATION PROCEDURE: Photic stimulation did not evoke a posterior driving response. There is no abnormality during the photic stimulation. Hyperventilation is not performed. CLINICAL INTERPRETATION: This is a normal routine EEG during awake state. There is no focal slowing, epileptiform discharge, or seizure on the EEG. A normal routine EEG does not rule out underlying epilepsy. Clinical correlation is recommended. ALEXANDR / CHRIS: [id number] /
[2024-12-13 14:08] LABS: HIV 2 AB Non-Reactive (Non-Reactive); HIV AB P24 Non-Reactive (Non-Reactive); HIV P24 AG Non-Reactive (Non-Reactive)
== END 2024-12-12 15:08 | disposition home or self-care (01) ==
LOC: EC 13:46 → 3SCARD 17:17
PROVIDERS: ADMIT Student in an Organized Health Care Education/Training Program; ATTEND Student in an Organized Health Care Education/Training Program
DX: O99.312 Alcohol use complicating pregnancy, second trimester (principal); F10.139 Alcohol abuse with withdrawal, unspecified; O99.352 Diseases of the nervous system complicating pregnancy, second trimester; R56.9 Unspecified convulsions; O99.322 Drug use complicating pregnancy, second trimester; F15.90 Other stimulant use, unspecified, uncomplicated; F12.90 Cannabis use, unspecified, uncomplicated; O99.342 Other mental disorders complicating pregnancy, second trimester; F41.9 Anxiety disorder, unspecified; O99.512 Diseases of the respiratory system complicating pregnancy, second trimester; J45.909 Unspecified asthma, uncomplicated; O99.332 Smoking (tobacco) complicating pregnancy, second trimester; F17.290 Nicotine dependence, other tobacco product, uncomplicated; Z3A.19 19 weeks gestation of pregnancy; Z79.899 Other long term (current) drug therapy; Z88.2 Allergy status to sulfonamides; Z88.8 Allergy status to other drugs, medicaments and biological substances; Z86.718 Personal history of other venous thrombosis and embolism
CPT/HCPCS: 96360; 99285; 36415; 95816; 93005; 86900; 86901; 86803; 86762; 80053 ×2; 80048; 83735 ×3; 82947; 85025 ×3; 86850; 87340; 81001 ×2; 84702; 84146; 86780; 80306; 87390; 76805; 70544; 70551; G0378 ×3; G0480; 80320